=== PATIENT | female | born 1940 | race Caucasian/White ===

== ENCOUNTER 2018-05-01 19:20 | Inpatient (IN) | payer OTHER ==
--- OUTSIDE RECORDS SUMMARY | 2018-05-01 20:01 | XMS REPORT ---
:1940 [facility] Address [address] [place]. [address] [place] [id number] Care Team Providers Name Role Phone Unavailable Unavailable Unavailable Payers Payer Name Policy Type Policy Number Effective Date Expiration Date Problems This patient has no known problems. Allergies, Adverse Reactions, Alerts Allergy Name Allergy Status Severity Reaction(s) Onset Inactive Treating Comments Type Date Date Clinician tioconazole DA Active 2018-04 00:00:0 0 tioconazole DA Active 2018-02 00:00:0 0 tioconazole DA Active 2017-07 00:00:0 0 Medications This patient has no known medications.
[2018-05-01] MEDS ORDERED: IPRATROPIUM BROM 0.5MG/2.5ML ONE (20:14)
[2018-05-01] MEDS ORDERED: ALBUTEROL 2.5 MG/3 ML NEB SOL ONE (20:14)
[2018-05-01 20:21] LABS: Absolute Lymphocytes (CBC) 1.8 K/uL (0.7-4.9); Absolute Monocytes 0.9 K/uL (0.1-1.3); Absolute Neutrophil 7.4 K/uL (1.8-8.0); Basophils % 0.9 % (0-1.3); Eosinophils % 0.7 % (0-4.4); Hematocrit 34.2 % (36.0-45.0); Lymphocytes % 17.5 % (15.3-44.8); MPV 6.8 fL (7.6-11.3); Monocytes % 8.3 % (3.3-12.3); RBC Red Blood Cell Count 3.59 M/uL (3.86-4.86)
[2018-05-01 20:23] LABS: Protime INR 1.13
[2018-05-01 20:42] LABS: ALT/SGPT 17 U/L (12-78); AST/SGOT 16 U/L (15-37); Albumin 2.8 g/dL (3.4-5.0); Alkaline Phosphatase 94 U/L (45-117); BUN Blood Urea Nitrogen 8 mg/dL (7-18); Bicarbonate 27 mmol/L (21-32); Bilirubin Direct < 0.1 mg/dL (0-0.2); Bilirubin Total 0.3 mg/dL (0.2-1.0); Glucose Level 106 mg/dL (74-106); Magnesium 2.3 mg/dL (1.8-2.4); NT PRO-BNP 120 pg/mL (<450); Potassium 3.7 mmol/L (3.5-5.1); Protein, Total 7.5 g/dL (6.4-8.2); Sodium Level 139 mmol/L (136-145); Troponin (Emerg Dept Use Only) < 0.02 ng/mL (0.0-0.045)
[2018-05-01] MEDS ORDERED: METHYLPREDNISOLONE 125 MG INJ ONE (20:54)
--- NOTE | 2018-05-01 21:30 | EDPHYS ---
Physician Documentation [facility] Name: Barbra Ferreira Age: 77 yrs Sex: Female : 1940 Arrival Date: 05/01/2018 Time: 19:23 Bed 2 Private MD: Miguelito Ernandez V ED Physician Steven Perry HPI: 05/02 04:56 This 77 yrs old Female presents to ER via Wheelchair with complaints of tw4 Breathing Difficulty, Chest Pain, Weakness. 04:56 The patient has shortness of breath at rest. Onset: The symptoms/episode began/occurred tw4 today. Duration: The symptoms are continuous, and are unchanged since they started. The patient's shortness of breath has no apparent modifying factors. Associated signs and symptoms: The patient has no apparent associated signs or symptoms. Severity of symptoms: At their worst the symptoms were moderate in the emergency department the symptoms are unchanged. The patient has not experienced similar symptoms in the past. Historical: - Allergies: 05/01 19:43 No Known Allergies; ak1 - Home Meds: 19:43 acetaminophen 325 mg Oral cap [Active]; losartan 25 mg Oral tab [Active]; Robaxin 500 ak1 mg Oral tab [Active]; - PMHx: 19:43 Atrial Fib; Back pain; Hypertension; Asthma; ak1 - PSHx: 19:43 Cholecystectomy; Knee surgery; ak1 - Immunization history:: Adult Immunizations unknown. - Social history:: Smoking status: Patient/guardian denies using tobacco. - Ebola Screening: : No symptoms or risks identified at this time. ROS: 05/02 04:56 Constitutional: Negative for fever, chills, and weight loss, Eyes: Negative for injury, tw4 pain, redness, and discharge, Cardiovascular: Negative for chest pain, palpitations, and edema, Abdomen/GI: Negative for abdominal pain, nausea, vomiting, diarrhea, and constipation, Back: Negative for injury and pain, MS/Extremity: Negative for injury and deformity, Skin: Negative for injury, rash, and discoloration, Neuro: Negative for headache, weakness, numbness, tingling, and seizure. Respiratory: Positive for shortness of breath, wheezing, Negative for cough, dyspnea on exertion, hemoptysis, orthopnea. Exam: 04:56 Constitutional: This is a well developed, well nourished patient who is awake, alert, tw4 and in no acute distress. Eyes: Pupils equal round and reactive to light, extra-ocular motions intact. Lids and lashes normal. Conjunctiva and sclera are non-icteric and not injected. Cornea within normal limits. Periorbital areas with no swelling, redness, or edema. Chest/axilla: Normal chest wall appearance and motion. Nontender with no deformity. No lesions are appreciated. Cardiovascular: Regular rate and rhythm with a normal S1 and S2. No gallops, murmurs, or rubs. Normal PMI, no JVD. No pulse deficits. Abdomen/GI: Soft, non-tender, with normal bowel sounds. No distension or tympany. No guarding or rebound. No evidence of tenderness throughout. Back: No spinal tenderness. No costovertebral tenderness. Full range of motion. MS/ Extremity: Pulses equal, no cyanosis. Neurovascular intact. Full, normal range of motion. Neuro: Awake and alert, GCS 15, oriented to person, place, time, and situation. Cranial nerves II-XII grossly intact. Motor strength 5/5 in all extremities. Sensory grossly intact. Cerebellar exam normal. Normal gait. Vital Signs: 05/01 19:43 BP 154 / 72; Pulse 99; Resp 18; Temp 98.1; Pulse Ox 92% on R/A; Weight 79.38 kg (R); ak1 Height 5 ft. 4 in. (162.56 cm) (R); Pain 5/10; 19:56 BP 169 / 94; Pulse 98; Resp 24; Pulse Ox 94% on R/A; lp1 20:30 BP 140 / 82; Pulse 98; Resp 24; Pulse Ox 94% on R/A; lp1 21:30 BP 122 / 63; Pulse 99; Resp 22; Pulse Ox 91% on R/A; lp1 22:30 BP 133 / 77; Pulse 101; Resp 23; Pulse Ox 91% on R/A; lp1 23:30 BP 147 / 78; Pulse 98; Resp 17; Pulse Ox 92% on R/A; lp1 05/02 00:45 BP 141 / 88; Pulse 99; Resp 20; Pulse Ox 94% on 2 lpm NC; lp1 05/01 19:43 Body Mass Index 30.04 (79.38 kg, 162.56 cm) ak1 MDM: 03/10 19:56 Patient medically screened. tw05/02 04:56 Differential diagnosis: pneumonia, pulmonary edema, Pulmonary Embolism reactive airway tw4 disease. Antibiotic administration: Data reviewed: vital signs, nurses notes. Data interpreted: Pulse oximetry: Interpretation:. Counseling: I had a detailed discussion with the patient and/or guardian regarding: the historical points, exam findings, and any diagnostic results supporting the discharge/admit diagnosis, lab results, radiology results. Medication response: albuterol nebulizer treatment(s) partially relieved the patient's wheezing. Response to treatment: the patient's symptoms have mildly improved after treatment, and as a result, I will discharge patient. Physician consultation: Tonja Pacheco MD regarding admission, to the telemetry unit. patient's condition, and will see patient in inpatient room. Admission orders: after a detailed discussion of the patient's condition and case, the admit orders are written by me. 04:56 Test interpretation: by ED physician or midlevel provider: ECG, plain radiologic 4 studies. 05/01 19:55 Order name: Basic Metabolic Panel [facility] 05/01 19:55 Order name: CBC with Diff [facility] 05/01 19:55 Order name: LFT's [facility] 05/01 19:55 Order name: Magnesium [facility] 05/01 19:55 Order name: NT PRO-BNP [facility] 05/01 19:55 Order name: PT-INR [facility] 05/01 19:55 Order name: Troponin (emerg Dept Use Only) [facility] 05/01 19:55 Order name: XRAY Chest (1 view) [facility] 05/01 21:05 Order name: CT Chest W/ Con [facility] 05/01 23:54 Order name: Urine Dipstick--Ancillary (enter results) 05/01 19:55 Order name: EKG; Complete Time: 19:55 [facility] 05/01 19:55 Order name: Cardiac monitoring; Complete Time: 20:08 [facility] 05/01 19:55 Order name: EKG - Nurse/Tech; Complete Time: 19:56 [facility] 05/01 19:55 Order name: IV Saline Lock; Complete Time: 20:15 [facility] 05/01 19:55 Order name: Labs collected and sent; Complete Time: 20:15 [facility] 05/01 19:55 Order name: O2 Per Protocol; Complete Time: 20:08 tw4 05/01 19:55 Order name: O2 Sat Monitoring; Complete Time: 20:08 tw4 EC:56 Rate is 100 beats/min. Rhythm is regular with PACs. QRS Kemp is Normal. NH interval is tw4 normal. QRS interval is normal. QT interval is normal. No Q waves. T waves are Normal. No ST changes noted. Clinical impression: Abnormal EKG without significant change. Interpreted by me. Reviewed by me. Administered Medications: 05/01 20:09 Drug: Albuterol - atroVENT (3:1) (2.5 mg - 0.5 mg) 3 ml Route: Nebulizer; lp1 20:49 Follow up: Response: Marked relief of symptoms lp1 20:49 Drug: SOLU-Medrol 125 mg Route: IVP; Site: right hand; lp1 21:30 Follow up: Response: No adverse reaction lp1 05/02 00:40 Drug: Rocephin - (cefTRIAXone) 1 grams Route: IVPB; Infused Over: 30 mins; Site: right lp1 hand; 01:21 Follow up: IV Status: Completed infusion; IV Intake: 10ml lp1 00:40 Drug: Tylenol 1000 mg Route: PO; lp1 01:21 Follow up: Response: No adverse reaction lp1 00:40 Drug: Zithromax 500 mg Route: IVPB; Infused Over: 1 hrs; Site: right hand; lp1 01:22 Follow up: IV Status: Infusion continued upon admission lp1 Disposition: 05/01/18 21:29 Hospitalization ordered by Miguelito Ernandez for Inpatient Admission. Preliminary diagnosis are Pleural effusion in other conditions classified elsewhere, Dyspnea, unspecified. - Bed requested for Telemetry/MedSurg (Inpatient). - Status is Inpatient Admission. lp1 - Condition is Fair. - Problem is new. - Symptoms are unchanged. UTI on Admission? No Signatures: Dispatcher [employer] Cele Lowry RN RN dw Candis Baeza RN RN lp1 Berenice Smith RN RN ak1 Steven Perry MD MD tw4 Corrections: (The following items were deleted from the chart) 00:51 05/01 21:29 Hospitalization Ordered by Miguelito Ernandez MD for Inpatient Admission. dw Preliminary diagnosis is Pleural effusion in other conditions classified elsewhere; Dyspnea, unspecified. Bed requested for Telemetry/MedSurg (Inpatient). Status is Inpatient Admission. Condition is Fair. Problem is new. Symptoms are unchanged. UTI on Admission? No. tw4 05/02 01:22 00:51 05/01/2018 21:29 Hospitalization Ordered by Miguelito Ernandez MD for Inpatient lp1 Admission. Preliminary diagnosis is Pleural effusion in other conditions classified elsewhere; Dyspnea, unspecified. Bed requested for Telemetry/MedSurg (Inpatient). Status is Inpatient Admission. Condition is Fair. Problem is new. Symptoms are unchanged. UTI on Admission? No. dw
--- NOTE | 2018-05-01 21:30 | ER ---
Nurse's Notes [facility] Name: Barbra Ferreira Age: 77 yrs Sex: Female : 1940 Arrival Date: 05/01/2018 Time: 19:23 Bed 2 Private MD: Miguelito Ernandez V Diagnosis: Pleural effusion in other conditions classified elsewhere;Dyspnea, unspecified Presentation: 05/01 19:41 Presenting complaint: Patient states: SOB AND CHEST TIGHTNESS TODAY. PT USED RECUSE ak1 INHALER TODAY. PT TAKING OTC COUGH MEDS AND SUDAFED. Transition of care: patient was not received from another setting of care. Onset of symptoms was May 01, 2018. Note PT C/O COUGH X2 WEEKS. Care prior to arrival: None. 19:41 Method Of Arrival: Wheelchair ak1 19:41 Acuity: ISABELLE 3 ak1 20:53 Risk Assessment: Do you want to hurt yourself or someone else? Patient reports no lp1 desire to harm self or others. Initial Sepsis Screen: Does the patient meet any 2 criteria? No. Patient's initial sepsis screen is negative. Does the patient have a suspected source of infection? No. Patient's initial sepsis screen is negative. Triage Assessment: 19:43 General: Appears in no apparent distress. Behavior is cooperative, anxious. ak1 Historical: - Allergies: 19:43 No Known Allergies; ak1 - Home Meds: 19:43 acetaminophen 325 mg Oral cap [Active]; losartan 25 mg Oral tab [Active]; Robaxin 500 ak1 mg Oral tab [Active]; - PMHx: 19:43 Atrial Fib; Back pain; Hypertension; Asthma; ak1 - PSHx: 19:43 Cholecystectomy; Knee surgery; ak1 - Immunization history:: Adult Immunizations unknown. - Social history:: Smoking status: Patient/guardian denies using tobacco. - Ebola Screening: : No symptoms or risks identified at this time. Screenin:53 Abuse screen: Denies threats or abuse. Denies injuries from another. Nutritional lp1 screening: No deficits noted. Tuberculosis screening: No symptoms or risk factors identified. Fall Risk None identified. Assessment: 19:57 General: Appears uncomfortable, Behavior is anxious. Pain: Denies pain. Neuro: Level of lp1 Consciousness is awake, alert, obeys commands, Oriented to person, place, time, situation. Cardiovascular: Patient's skin is warm and dry. Rhythm is sinus rhythm. Respiratory: Reports shortness of breath at rest cough that is productive, Airway is patent Trachea midline Respiratory effort is even, Respiratory pattern is regular, Breath sounds are diminished bilaterally. Onset: The symptoms/episode began/occurred gradually, the patient has mild shortness of breath. GI: No signs and/or symptoms were reported involving the gastrointestinal system. : No signs and/or symptoms were reported regarding the genitourinary system. EENT: Reports nasal congestion. Derm: Skin is intact, Skin is dry, Skin is normal. Musculoskeletal: Circulation, motion, and sensation intact. 20:52 Reassessment: Patient appears in no apparent distress at this time. Reassessment: lp1 Patient states feeling better. Patient states symptoms have improved. General: Behavior is calm. 22:00 Reassessment: Patient appears in no apparent distress at this time. No changes from lp1 previously documented assessment. Patient is alert, oriented x 3, equal unlabored respirations, skin warm/dry/pink. 23:37 Reassessment: Patient appears in no apparent distress at this time. No changes from aj1 previously documented assessment. Patient and/or family updated on plan of care and expected duration. Pain level reassessed. pt informed of wait for bed assignment. pt assisted to restroom via wheelchair by Ciro Horn Patient states feeling better. Patient states symptoms have improved. 05/02 00:30 Reassessment: Patient complaint of headache; Provider aware. lp1 Vital Signs: 05/01 19:43 BP 154 / 72; Pulse 99; Resp 18; Temp 98.1; Pulse Ox 92% on R/A; Weight 79.38 kg (R); ak1 Height 5 ft. 4 in. (162.56 cm) (R); Pain 5/10; 19:56 BP 169 / 94; Pulse 98; Resp 24; Pulse Ox 94% on R/A; lp1 20:30 BP 140 / 82; Pulse 98; Resp 24; Pulse Ox 94% on R/A; lp1 21:30 BP 122 / 63; Pulse 99; Resp 22; Pulse Ox 91% on R/A; lp1 22:30 BP 133 / 77; Pulse 101; Resp 23; Pulse Ox 91% on R/A; lp1 23:30 BP 147 / 78; Pulse 98; Resp 17; Pulse Ox 92% on R/A; lp1 05/02 00:45 BP 141 / 88; Pulse 99; Resp 20; Pulse Ox 94% on 2 lpm NC; lp1 05/01 19:43 Body Mass Index 30.04 (79.38 kg, 162.56 cm) ak1 ED Course: 05/01 19:23 Patient arrived in ED. es 19:23 Miguelito Ernandez MD is Private Physician. es 19:42 Triage completed. ak1 19:43 Arm band placed on Patient placed in an exam room, Patient notified of wait time. ak1 19:45 Candis Baeza, RYANNE is Primary Nurse. lp1 19:55 Steven Perry MD is Attending Physician. tw4 19:58 Patient has correct armband on for positive identification. Placed in gown. Bed in low lp1 position. Call light in reach. Side rails up X2. nuclear monitoring technician on. Pulse ox on. NIBP on. 20:13 Inserted saline lock: 22 gauge in right hand, using aseptic technique. Blood collected. oe 20:54 No provider procedures requiring assistance completed. lp1 21:08 XRAY Chest (1 view) In Process Unspecified. EDMS 21:28 Miguelito Ernandez MD is Hospitalizing Provider. tw4 21:33 Patient admitted, IV remains in place. lp1 22:34 Inserted saline lock: 20 gauge in right antecubital area, using aseptic technique. ak1 23:17 CT Chest W/ Con In Process Unspecified. EDMS Administered Medications: 20:09 Drug: Albuterol - atroVENT (3:1) (2.5 mg - 0.5 mg) 3 ml Route: Nebulizer; lp1 20:49 Follow up: Response: Marked relief of symptoms lp1 20:49 Drug: SOLU-Medrol 125 mg Route: IVP; Site: right hand; lp1 21:30 Follow up: Response: No adverse reaction lp1 05/02 00:40 Drug: Rocephin - (cefTRIAXone) 1 grams Route: IVPB; Infused Over: 30 mins; Site: right lp1 hand; 01:21 Follow up: IV Status: Completed infusion; IV Intake: 10ml lp1 00:40 Drug: Tylenol 1000 mg Route: PO; lp1 01:21 Follow up: Response: No adverse reaction lp1 00:40 Drug: Zithromax 500 mg Route: IVPB; Infused Over: 1 hrs; Site: right hand; lp1 01:22 Follow up: IV Status: Infusion continued upon admission lp1 Intake: 01:21 IV: 10ml; Total: 10ml. lp1 Outcome: 05/01 21:29 Decision to Hospitalize by Provider. tw4 21:33 Condition: stable lp1 21:33 Instructed on the need for admit. 05/02 01:08 Admitted to Med/surg accompanied by nurse, room 209, with oxygen, with chart, Report lp1 called to Lula El LVN 01:22 Patient left the ED. lp1 Signatures: Dispatcher [employer] EDSherrie Castillo RN RN aj1 Nga Pelayo Laura, RN RN lp1 Berenice Smith RN RN ak1 Ciro Quiros Terrence, MD MD tw4 Corrections: (The following items were deleted from the chart) 05/01 20:53 19:57 Respiratory: Reports shortness of breath at rest cough that is productive, Airway lp1 is patent Trachea midline Respiratory effort is even, Respiratory pattern is regular, Breath sounds are diminished bilaterally. lp1
--- NOTE | 2018-05-01 21:38 | RAD REPORT ---
EXAM DESCRIPTION: RAD - Chest Single View - 05/01/2018 9:08 pm CLINICAL HISTORY: DYSPNEA Chest pain. COMPARISON: Chest Pa And Lat (2 Views) dated 11/09/2017; Chest Single View dated 09/15/2016; CHEST SIN GLE VIEW dated 08/28/2013; CHEST PA AND LAT 2 VIEW dated 04/22/2007 FINDINGS: Portable technique limits examination quality. Moderate left and a small right pleural effusion is noted. Mild interstitial pulmonary edema seen. He art size is difficult to assess. No displaced fractures.
[2018-05-01 23:58] LABS: Urine Blood TRACE (NEG); Urine Glucose NEGATIVE (NEG); Urine Protein NEGATIVE (NEG); Urine Specific Gravity 1.005 (1.005-1.030)
[2018-05-02] MEDS ORDERED: ACETAMINOPHEN 500 MG TAB ONE (00:46)
[2018-05-02] MEDS ORDERED: AZITHROMYCIN 500 MG INJ IVPB ONE (00:46)
[2018-05-02] MEDS ORDERED: NA CHLORIDE 0.9% 250 ML ONE (00:47)
[2018-05-02] MEDS: ACETAMINOPHEN 500 MG TAB PO PRN ×2 (06:21→15:36)
--- NOTE | 2018-05-02 08:35 | EKG ---
Test Date: 2018-05-01 Test Time: 18:52:16 Heart Coordinator: MARILU MEASUREMENT RESULTS: Intervals: Rate: 100 MI: 196 QRSD: 84 QT: 328 QTc: 423 [place]: P: 37 MI: 196 QRS: 6 T: 14 INTERPRETIVE STATEMENTS: Sinus rhythm with premature atrial complexes Low voltage QRS Borderline ECG Compared to ECG 09/15/2016 01:57:30 Atrial premature complex(es) now present First degree AV block no longer present ST (T wave) deviation no longer present Possible ischemia no longer present Electronically Signed On 05-02-18 08:34:37 CDT by Chidi Mansfield
[2018-05-02 08:57] LABS: Protime INR 1.17
[2018-05-02] MEDS ORDERED: CEFTRIAXONE 1 GM/NS 50 ML 1 GM/50 ML BAG IV SCH (09:00)
[2018-05-02] MEDS ORDERED: AZITHROMYCIN IV 500 MG in NA CHLORIDE 0.9% 250 ML IVPB SCH ×2 (09:00→21:00)
[2018-05-02] MEDS ORDERED: CEFTRIAXONE/SWI 1gm 1 GM/10 ML SYR IV SCH (09:00)
[2018-05-02 09:12] LABS: Platelet Estimate INCR
--- NOTE | 2018-05-02 12:13 | RAD REPORT ---
EXAM DESCRIPTION: CT Chest With Intravenous Contrast CLINICAL HISTORY: The patient is 77 years old and is Female; SOB TECHNIQUE: Axial computed tomography images of the chest with intravenous contrast. Sagittal and c oronal reformatted images were created and reviewed. This CT exam was performed using one or more o f the following dose reduction techniques: automated exposure control, adjustment of the mA and/or kV according to patient size, and/or use of iterative reconstruction technique. COMPARISON: CTA chest dated November 09, 2017. FINDINGS: LUNGS: See below. PLEURAL SPACE: Moderate right and large left pleural effusions and adjacent atelectasis. There is a opacity with air bronchograms in the right lower lobe. Similar-appearing finding is seen in the sup erior segment of the left lower lobe. HEART: The heart is normal in size. No pericardial effusion. BONES/JOINTS: Unremarkable. No acute fracture. No dislocation. SOFT TISSUES: Unremarkable. VASCULATURE: Unremarkable. No thoracic aortic aneurysm. LYMPH NODES: Unremarkable. No enlarged lymph nodes. LIVER: Visualized upper abdomen demonstrate no acute abnormality. Multiple subcentimeter hepatic h ypodensities are noted, likely cysts. OTHER FINDINGS: Diffuse disc space narrowing and reactive endplate changes. IMPRESSION: 1. Large bilateral pleural effusions, left greater than right. Adjacent atelectasis. 2. Small opacities and air bronchograms as detailed above which may be related to atelectasis or cons olidation. Correlate for symptoms of infection. 3. Degenerative disc disease. Electronically signed by: Yeison Byrd DO 05/01/2018 11:25 PM CDT Due to temporary technical issues with the PACS/Fluency reporting system, reports are being signed by the in house radiologist as a courtesy to ensure prompt reporting. The interpreting radiologist is f ully responsible for the content of the report.
[2018-05-02] MEDS ORDERED: FUROSEMIDE 20 MG/ 2ML VIAL IV ONE (12:30)
--- NOTE | 2018-05-02 13:08 | P.HP ---
Certification for Inpatient Patient admitted to: Inpatient With expected LOS: >2 Midnights Practitioner: I am a practitioner with admitting privileges, knowledge of patient current condition, hospital course, and medical plan of care. Services: Services provided to patient in accordance with Admission requirements found in Title 42 Section 412.3 of the Code of Federal Regulations Patient History Date of Service: 05/02/18 Reason for admission: DYSPNEA History of Present Illness: SAMARA HAS DYSPNEA WORSE OVER A FEW DAYS. SHE IS WORSE AND SO SHE CAME TO ER. SHE HAS NO CHEST PAIN. SHE HAS NO FEVER OR COUGH. Allergies tioconazole [From Monistat 1 (tioconazole)] Allergy (Verified 05/02/18 02:22) Hives/Rash Home Medications: Albuterol Sulfate [Proair Hfa] 2 inhaler PO QID 05/02/18 Glycopyrrolate/Formoterol Fum [Bevespi Aerosphere Inhaler] 1 inhaler PO QID 01/10 Losartan Potassium 100 mg PO DAILY 05/02/18 Meloxicam 7.5 mg PO DAILY 05/02/18 Methocarbamol 750 mg PO TID 05/02/18 - Past Medical/Surgical History Has patient received pneumonia vaccine in the past: Yes Diabetic: No -: A.FIB -: HTN -: BACK PAIN -: OVARIAN CYST REMOVAL -: KNEE SX -: CHOLECYSTECTOMY - Social History Smoking Status: Never smoker Alcohol use: No CD- Drugs: No Caffeine use: Yes Place of Residence: Home Review of Systems 10-point ROS is otherwise unremarkable General: Weakness, Malaise Respiratory: Shortness of Breath Physical Examination - Vital Signs Temperature: 99.0 F Blood Pressure: 175/85 Pulse: 79 Respirations: 22 Pulse Ox (%): 93 - Physical Exam General: Alert, Mild distress, Obese HEENT: Atraumatic, PERRLA, Mucous membr. moist/pink, EOMI, Sclerae nonicteric Neck: Supple, 2+ carotid pulse no bruit, No LAD, Without JVD or thyroid abnormality Respiratory: Diminished Cardiovascular: Regular rate/rhythm, Normal S1 S2 Gastrointestinal: Normal bowel sounds, No tenderness Musculoskeletal: No tenderness Integumentary: No rashes Neurological: Normal gait, Normal speech, Normal strength at 5/5 x4 extr, Normal tone, Normal affect Lymphatics: No axilla or inguinal lymphadenopathy - Studies Laboratory Data (last 24 hrs) 05/01/18 20:11: PT 13.3 H, INR 1.13 05/01/18 20:11: WBC 10.2, Hgb 11.8 L, Hct 34.2 L, Plt Count 696 H 05/01/18 20:11: Sodium 139, Potassium 3.7, BUN 8, Creatinine 0.45 L, Glucose 106 , Magnesium 2.3, Total Bilirubin 0.3, AST 16, ALT 17, Alkaline Phosphatase 94 Assessment and Plan - Problems (Diagnosis) (1) Large pleural effusion Current Visit: Yes Status: Chronic Plan: SHE HAS NO TUMOR ON CT SCAN. NO SIGNS OF CHF CLINICALLY, NORMAL BNP. ORDER ECHO ORDER SONOGRAM OF ABDOMEN. LOW ALBUMIN CAN BE FROM NEPHROTIC SYNDROME OR CIRRHOSIS FROM FATTY LIVER. DR. JOHANSEN CONSULTED FOR TAP. - Advance Directives Does patient have a Living Will: Yes Does patient have a Durable POA for Healthcare: Yes
--- NOTE | 2018-05-02 14:20 | RAD REPORT ---
EXAM DESCRIPTION: US - Abdomen Exam Complete - 05/02/2018 2:04 pm CLINICAL HISTORY: Abdominal pain. LIVER, LOW ALBUMIN COMPARISON: Abdomen Exam Complete dated 12/22/2017 FINDINGS: The liver is normal in size, shape and echotexture. No focal liver lesions or intrahepatic biliary dilatation is seen. Small benign left lobe liver cysts are unchanged. Cholecystectomy. Common bile duct is mildly prominent size measuring 8 mm. Both kidneys are normal in size, shape and echotexture. No hydronephrosis seen. No aggressive renal l esion. The spleen is normal in size measuring 8 cm. The pancreas and aorta are obscured by bowel gas. The visualized aspects of the IVC are grossly normal. IMPRESSION: Cholecystectomy with mildly prominent CBD. Most likely, this is secondary to a reservoir effect. No acute abnormality discerned.
--- NOTE | 2018-05-02 14:49 | RAD REPORT ---
EXAM DESCRIPTION: RAD - Chest Lateral Decubitus - 05/02/2018 2:36 pm CLINICAL HISTORY: SOB COMPARISON: Chest Single View dated 05/01/2018 FINDINGS: Left side up decubitus view shows a layering pleural effusion on the right measuring 3.5 c m in maximum thickness. The right-side up decubitus view shows a layering pleural effusion on the lef t measuring 4.8 cm in maximum thickness.
[2018-05-03] MEDS: ACETAMINOPHEN 500 MG TAB PO PRN ×2 (04:36→19:46)
[2018-05-03] MEDS: SPIRONOLACTONE 25 MG TABLET PO SCH ×2 (09:36→19:46)
[2018-05-03] MEDS: FUROSEMIDE 20 MG/ 2ML VIAL IV SCH (09:36)
--- NOTE | 2018-05-03 12:27 | P.CNS ---
Date of Consult: 05/03/18 Chief Complaint: Shortness of breath and pleural effusion History of Present Illness: Patient is 77 years of age has been complaining of progressive dyspnea worse over the past week she has noticed in March and prior to that in November the history of asthma for 10 years and was treated with intermittent inhalers and was prescribed inhalers became worse coughing spells no oral came here to the hospital and was admitted due to bilateral pleural effusions also has some lower extremity edema complains of orthopnea Allergies tioconazole [From Monistat 1 (tioconazole)] Allergy (Verified 05/02/18 02:22) Hives/Rash Home Medications: Albuterol Sulfate [Proair Hfa] 2 inhaler PO QID 05/02/18 Glycopyrrolate/Formoterol Fum [Bevespi Aerosphere Inhaler] 1 inhaler PO QID 01/10 Losartan Potassium 100 mg PO DAILY 05/02/18 Meloxicam 7.5 mg PO DAILY 05/02/18 Methocarbamol 750 mg PO TID 05/02/18 - Past Medical/Surgical History Diabetic: No -: A.FIB -: HTN -: BACK PAIN -: OVARIAN CYST REMOVAL -: KNEE SX -: CHOLECYSTECTOMY - Social History Alcohol use: No CD- Drugs: No Caffeine use: Yes Place of Residence: Home Review of Systems 10-point ROS is otherwise unremarkable Physical Examination Temp Pulse Resp BP Pulse Ox 97.1 F 65 18 103/58 L 100 05/03/18 08:00 05/03/18 09:36 05/03/18 08:00 05/03/18 09:36 05/03/18 08:00 General: Alert, Oriented x3 HEENT: Atraumatic Neck: Supple Respiratory: Diminished (Diminished air entry bilaterally left greater than the right) Cardiovascular: No edema, Regular rate/rhythm Gastrointestinal: Normal bowel sounds, Soft and benign - Problems (1) Pleural effusion Current Visit: Yes Status: Acute Plan: Patient is 77 years of age admitted with progressive dyspnea worsens March as been having a problem since November became worse over the past week bilateral pleural effusion left greater than light lower extremity edema orthopnea this strongly suspect that she is diastolic dysfunction decubitus x- rays again confirms bilateral pleural effusions the start patient on spironolactone 1 dose of Lasix chemistries reviewed blood pressure stable oxygenation satisfactory echocardiogram pending thoracenteses not indicated this present moment
--- NOTE | 2018-05-03 13:24 | P.PN ---
Subjective Date of Service: 05/03/18 Chief Complaint: Shortness of breath and pleural effusion Subjective: No new changes WE ARE STILL WAITING FOR ECHOCARDIOGRAM. SHE IS STILL DYSPNEIC AT REST. DR JOHANSEN HAS BEEN CONSULTED. Review of Systems 10-point ROS is otherwise unremarkable General: Weakness, Malaise Respiratory: Shortness of Breath Physical Examination - Vital Signs Temperature: 97.1 F Blood Pressure: 103/58 Pulse: 65 Respirations: 18 Pulse Ox (%): 100 - Physical Exam General: Alert, Mild distress, Moderate distress HEENT: Atraumatic, PERRLA, EOMI Neck: Supple, JVD not distended Respiratory: Clear to auscultation bilaterally, Normal air movement Cardiovascular: Regular rate/rhythm, Normal S1 S2 Gastrointestinal: Normal bowel sounds, No tenderness Musculoskeletal: No tenderness Integumentary: No rashes Neurological: Normal speech, Normal tone, Normal affect Lymphatics: No axilla or inguinal lymphadenopathy - Studies Medications List Reviewed: Yes Assessment And Plan - Current Problems (Diagnosis) (1) Large pleural effusion Current Visit: Yes Status: Chronic Plan: SHE HAS NO TUMOR ON CT SCAN. NO SIGNS OF CHF CLINICALLY, NORMAL BNP. ORDER ECHO ORDER SONOGRAM OF ABDOMEN. LOW ALBUMIN CAN BE FROM NEPHROTIC SYNDROME OR CIRRHOSIS FROM FATTY LIVER. DR. JOHANSEN CONSULTED FOR TAP. ECHO PENDING. MAY NEED TO TAP IT.
--- NOTE | 2018-05-03 17:30 | ECHO ---
HEIGHT: 5 ft 4 in WEIGHT: 176 lb 9 oz DATE OF STUDY: 05/03/[address]: Miguelito Ernandez MD 2-DIMENSIONAL: YES M.MODE: YES DOPPLER: YES COLOR FLOW: YES TDS: YES PORTABLE: DEFINITY: BUBBLE STUDY: DIAGNOSIS: DYSPNEA CARDIAC HISTORY: CATHERIZATION: SURGERY: PROSTHETIC VALVE: NO PACEMAKER: NO MEASUREMENTS (cm) DIASTOLIC (NORMALS) SYSTOLIC (NORMALS) IVSd 1.1 (0.6-1.2) LA Diam 4.0 (1.9-4.0) LVEF 65% LVIDd 4.1 (3.5-5.7) LVIDs 2.7 (2.0-3.5) %FS 35% LVPWd 1.0 (0.6-1.2) Ao Diam 2.5 (2.0-3.7) 2 DIMENSIONAL ASSESSMENT: RIGHT ATRIUM: NORMAL LEFT ATRIUM: NORMAL RIGHT VENTRICLE: NORMAL LEFT VENTRICLE: NORMAL TRICUSPID VALVE: NORMAL MITRAL VALVE: NORMAL PULMONIC VALVE: NORMAL AORTIC VALVE: NORMAL PERICARDIAL EFFUSION: NONE AORTIC ROOT: NORMAL LEFT VENTRICULAR WALL MOTION: NORMAL DOPPLER/COLOR FLOW: IMPAIRED LEFT VENTRICULAR RELAXATION. MILD AORTIC REGURGITATION. COMMENTS: NORMAL LEFT VENTRICULAR EJECTION FRACTION. IMPAIRED LEFT VENTRICULAR RELAXATION. MILD AORTIC REGURGITATION. TECHNICALLY DIFFICULT STUDY. TECHNOLOGIST: CARLOS DANIEL
[2018-05-03] MEDS: SOTALOL HCL 80 MG TAB PO SCH (23:54)
[2018-05-03] MEDS: LIDOCAINE 5% PATCH TOP SCH (23:54)
[2018-05-04] MEDS: ACETAMINOPHEN 500 MG TAB PO PRN ×2 (00:10→06:34)
[2018-05-04] MEDS ORDERED: METHOCARBAMOL 750 MG TAB PO ONE (00:20)
[2018-05-04] MEDS: APIXABAN 5 MG TABLET PO SCH ×4 (00:37→20:21)
[2018-05-04] MEDS: SOTALOL HCL 80 MG TAB PO SCH ×2 (06:35→17:19)
[2018-05-04] MEDS: SPIRONOLACTONE 25 MG TABLET PO SCH ×2 (08:23→20:21)
[2018-05-04] MEDS: LIDOCAINE 5% PATCH TOP SCH ×2 (08:27→11:42)
[2018-05-04] MEDS: FUROSEMIDE 20 MG/ 2ML VIAL IV SCH (09:00)
[2018-05-04] MEDS ORDERED: METHOCARBAMOL 500 MG TAB PO PRN (11:33)
--- NOTE | 2018-05-04 12:33 | P.PN ---
Subjective Date of Service: 05/04/18 Chief Complaint: Shortness of breath No change in patient's condition she is still short of breath kelley patient developed atrial fibrillation last night she has had history of intermittent atrial fibrillation very anxious daughter at her bedside has problems taking Lasix Review of Systems General: Weakness Respiratory: Shortness of Breath Physical Examination - Vital Signs Temperature: 97.2 F Blood Pressure: 110/67 Pulse: 101 Respirations: 18 Pulse Ox (%): 93 - Physical Exam General: Alert, Oriented x3 Neck: Supple Respiratory: Diminished Cardiovascular: No edema, Regular rate/rhythm - Studies Medications List Reviewed: Yes Assessment & Plan - Problems (Diagnosis) (1) Diastolic heart failure Current Visit: Yes Status: Acute Plan: I strongly suspect the patient has diastolic heart failure as patient has bilateral pleural effusion in addition to hypertension atrial fibrillation continue with spironolactone patient is on Betapace and has now anti coagulated for centesis not indicated at this present time echocardiogram shows impaired left ventricular relaxation room-air oxygenation satisfactory she is not qualify for home O2 ovoid bronchodilators Qualifiers: Heart failure chronicity: acute on chronic Qualified Code(s): I50.33 - Acute on chronic diastolic (congestive) heart failure
[2018-05-04] MEDS: LEVALBUTEROL 0.63 MG/3 ML NEB NEB PRN (13:03)
--- NOTE | 2018-05-04 14:09 | CON ---
A 77-year-old woman. Reason For Consult: Afib. History Of Present Illness: The patient has been in the hospital because of dyspnea. She is found t o have diastolic heart failure. She was in sinus rhythm when she first came in. She is undergoing s ome diuresis, but is unable to tolerate Lasix, so diuresis is being done with other medications and s he is getting slowly better, but while here she had atrial fibrillation. Presently her heart rate is much slower, but she is still in Afib. She has a history of hypertension and dyslipidemia. She has not had atrial fibrillation in the past at least that has been recorded and we know that. She had b ack pain, ovarian cyst, cholecystectomy, knee surgery, never been a smoker. As an outpatient she marlo es albuterol, Bevespi Aerosphere inhaler, losartan, meloxicam, and methocarbamol. Physical Examination: General: She is alert, oriented, pleasant. Vital Signs: 5 feet 4 inches, 176 pounds. HEENT: Normal. Lungs: Clear. There are decreased breath sounds, especially on the right side, but no crackles or w heeze. Cardiac: Irregular, heart rate about 90. Impression: We should try to get her back in sinus rhythm. She will be receiving Betapace 80 b.i.d. and Eliquis until we can get her rhythm to go back to normal. If it does not go back by Wednesday, we will consider a cardioversion. ASIF/ROQUE Voice ID: [id number] Report ID: [id number]
[2018-05-04] MEDS: METHOCARBAMOL 750 MG TAB PO SCH ×2 (14:36→20:20)
[2018-05-04] MEDS: GABAPENTIN 100 MG CAP PO SCH ×2 (14:37→20:21)
[2018-05-04] MEDS ORDERED: [UNRECOGNIZED DRUG - OTHER] PO SCH (17:00)
[2018-05-04] MEDS ORDERED: GLYCOPYRROLATE PO SCH (17:00)
[2018-05-04] MEDS ORDERED: FORMOTEROL FUM PO SCH (17:00)
[2018-05-04] MEDS: METHYLPREDNISOLONE 40 MG INJ IV SCH (17:19)
--- NOTE | 2018-05-04 20:48 | P.PN ---
Subjective Date of Service: 05/04/18 Chief Complaint: Shortness of breath Subjective: C/O voiced WE ARE STILL WAITING FOR ECHOCARDIOGRAM. SHE IS STILL DYSPNEIC AT REST. DR JOHANSEN HAS BEEN CONSULTED. THIS AM SHE HAD NECK PAIN, MID BACK PAIN. ROBAXIN HELPED AND SHE WILL GET MORE PRN. SHE IS SITTING SHE CAN'T BREATH AND SO SHE HAS NECK PAIN. SHE LAST NIGHT HAD CONVERSION TO ATRIAL FIBRILLATION. I GAVER HER BETAPACE, ELIQUIS AND CONSULTED DR. WATERMAN. HER HEART RATE IS DOWN FROM 150 TO 100 NOW. THIS PM NURSE CALLED THAT SHE IS MORE DYSPNEIC DESPITE DIURESIS AND NEBULIZER WITH IV SOLUMEDROL. I ADIVSED NURSE TO MOVE HER TO ICU FOR FURTHER THERAPY, ORDERED CBC, BASIC M. PROFILE AND BNP, CXR, STAT. I ALSO CALLED DR. JOHANSEN ABOUT CHANGE OF CONDITION AND FOLLOW UP. HE THOUGHT SHE WAS VERY ANXIOUS IN THE MORNING. Review of Systems 10-point ROS is otherwise unremarkable Respiratory: Shortness of Breath, As per HPI Physical Examination - Vital Signs Temperature: 98.5 F Blood Pressure: 191/92 Pulse: 76 Respirations: 18 Pulse Ox (%): 96 - Physical Exam General: Alert, Mild distress HEENT: Atraumatic, PERRLA, EOMI Neck: Supple, JVD not distended Respiratory: Diminished Cardiovascular: Regular rate/rhythm, Normal S1 S2 Gastrointestinal: Normal bowel sounds, No tenderness Musculoskeletal: No tenderness Integumentary: No rashes Neurological: Normal speech, Normal tone, Normal affect Lymphatics: No axilla or inguinal lymphadenopathy - Studies Medications List Reviewed: Yes Assessment And Plan - Current Problems (Diagnosis) (1) Large pleural effusion Current Visit: Yes Status: Chronic Plan: SHE HAS NO TUMOR ON CT SCAN. NO SIGNS OF CHF CLINICALLY, NORMAL BNP. ORDER ECHO ORDER SONOGRAM OF ABDOMEN. LOW ALBUMIN CAN BE FROM NEPHROTIC SYNDROME OR CIRRHOSIS FROM FATTY LIVER. DR. JOHANSEN CONSULTED FOR TAP. ECHO PENDING. MAY NEED TO TAP IT. DR JOHANSEN IS TREATING THIS WITH DIURESIS IT SEEMS TO HAVE DIAGNOSIS OF DIASTOLIC DYSFUNCTION. PROTEIN IN URINE IS NOT SIGNIFICANT- FOR NEPH SYNDROME. (2) Diastolic CHF Current Visit: Yes Status: Acute Plan: IV DIURESIS. SHE SAYS LASIX GIVES HER IBS SS SO I CHANGED TO BUMEX IV BID. SHE IS ALREADY ON B TRACE FROM LAST NIGHT. DR. WATERMAN IS CONSULTED. Qualifiers: Heart failure chronicity: acute Qualified Code(s): I50.31 - Acute diastolic (congestive) heart failure (3) New onset a-fib Current Visit: Yes Status: Acute Plan: HPI. (4) Neck pain Current Visit: Yes Status: Chronic Plan: GABAPENTIN AND ROBAXIN
[2018-05-04 21:26] LABS: Absolute Lymphocytes (CBC) 0.9 K/uL (0.7-4.9); Absolute Monocytes 0.1 K/uL (0.1-1.3); Absolute Neutrophil 9.6 K/uL (1.8-8.0); Basophils % 0.5 % (0-1.3); Eosinophils % 0.1 % (0-4.4); Hematocrit 38.6 % (36.0-45.0); Lymphocytes % 8.1 % (15.3-44.8); MPV 6.9 fL (7.6-11.3); Monocytes % 1.2 % (3.3-12.3); RBC Red Blood Cell Count 4.09 M/uL (3.86-4.86)
[2018-05-04 21:42] LABS: BUN Blood Urea Nitrogen 8 mg/dL (7-18); Bicarbonate 28 mmol/L (21-32); Glucose Level 134 mg/dL (74-106); NT PRO-BNP 1094 pg/mL (<450); Potassium 4.2 mmol/L (3.5-5.1); Sodium Level 131 mmol/L (136-145)
[2018-05-04] MEDS: BUMETANIDE 1 MG/4 ML VIAL IV SCH (21:58)
[2018-05-04 22:22] LABS: Arterial Blood Carboxyhemoglob 1.2 % (0-1.5); Blood Gas Oxyhemoglobin 91.5 % (94-97); Blood O2 Saturation 93.2 % (92-98.5)
[2018-05-04 22:41] LABS: Blood Morphology Comment NOT SEEN (NOT SEEN); Platelet Estimate ADEQ; Urine White Blood Cell Casts OK
[2018-05-05] MEDS: ACETAMINOPHEN 500 MG TAB PO PRN (00:13)
[2018-05-05] MEDS: METHYLPREDNISOLONE 40 MG INJ IV SCH ×2 (00:13→06:40)
[2018-05-05] MEDS: ALPRAZOLAM 0.25 MG TABLET PO PRN ×2 (00:14→20:54)
[2018-05-05] MEDS: SOTALOL HCL 80 MG TAB PO SCH ×2 (06:40→17:43)
[2018-05-05] MEDS: LEVALBUTEROL 0.63 MG/3 ML NEB NEB PRN (08:16)
--- NOTE | 2018-05-05 08:22 | P.PN ---
Subjective Date of Service: 05/05/18 Chief Complaint: Shortness of breath Patient's condition deteriorated last night she became acutely worse was transferred to the ICU after the insertion of Jorge catheter and hangs a lytic patient is doing much better denies any fever chills did not tolerate BiPAP Review of Systems General: Weakness Respiratory: Shortness of Breath Physical Examination - Vital Signs Temperature: 98.1 F Blood Pressure: 133/72 Pulse: 67 Respirations: 18 Pulse Ox (%): 91 - Physical Exam General: Alert, Oriented x3 HEENT: Atraumatic Neck: Supple Respiratory: Diminished (Diminished air entry bilaterally) Cardiovascular: No edema, Normal pulses, Regular rate/rhythm - Studies Medications List Reviewed: Yes Assessment & Plan - Problems (Diagnosis) (1) Diastolic heart failure Current Visit: Yes Status: Acute Plan: Patient has bilateral pleural effusions diastolic heart failure continue with Bumex as citrus stopping steroids will repeated on the chest x-ray consider thoracentesis on the left side for symptom relief patient is currently anti coagulated the patient continues to responded probably poor and to wait until over the weekend vital signs in oxygenation satisfactory Qualifiers: Heart failure chronicity: acute on chronic Qualified Code(s): I50.33 - Acute on chronic diastolic (congestive) heart failure
[2018-05-05] MEDS: LIDOCAINE 5% PATCH TOP SCH ×2 (08:52→09:00)
[2018-05-05] MEDS: LOSARTAN POTASSIUM 50 MG TABLET PO SCH (08:52)
[2018-05-05] MEDS: SPIRONOLACTONE 25 MG TABLET PO SCH ×2 (08:52→20:56)
[2018-05-05] MEDS: APIXABAN 5 MG TABLET PO SCH ×2 (08:52→20:55)
[2018-05-05] MEDS: GABAPENTIN 100 MG CAP PO SCH ×3 (08:52→20:55)
[2018-05-05] MEDS: METHOCARBAMOL 750 MG TAB PO SCH ×3 (09:42→20:55)
[2018-05-05] MEDS: BUMETANIDE 1 MG/4 ML VIAL IV SCH ×2 (09:42→20:54)
--- NOTE | 2018-05-05 09:48 | RAD REPORT ---
EXAM DESCRIPTION: [facility] Pa And Lat (2 Views)05/05/2018 8:54 am CLINICAL HISTORY: Cough COMPARISON: July 04 FINDINGS: Mild bilateral pulmonary opacities appear resolved. Bibasilar atelectasis is unchanged Bilateral pleural effusions appear minimally diminished in size. This could be a true finding or seco ndary to different positioning. No other change noted
--- NOTE | 2018-05-05 10:25 | RAD REPORT ---
EXAM DESCRIPTION: RAD - Chest Single View - 05/04/2018 11:09 pm CLINICAL HISTORY: DYSPNEA. COMPARISON: None. FINDINGS: There are moderate bilateral pleural effusions with adjacent atelectasis, also present on CT scan from 05/02/2018. The heart size is obscured. Generalized osteopenia is present. No discernible pneumothorax. No acute osseous findings. IMPRESSION: Moderate bilateral pleural effusions with adjacent atelectasis. Electronically signed by: Neo Oh MD 05/04/2018 9:51 PM CDT Due to temporary technical issues with the PACS/Fluency reporting system, reports are being signed by the in house radiologist as a courtesy to ensure prompt reporting. The interpreting radiologist is f ully responsible for the content of the report.
--- NOTE | 2018-05-05 10:32 | EKG ---
Test Date: 2018-05-03 Test Time: 23:07:08 Coordinator Integrated Marketing: NINA MEASUREMENT RESULTS: Intervals: Rate: 147 DE: QRSD: 86 QT: 310 QTc: 485 [place]: P: DE: QRS: -3 T: -1 INTERPRETIVE STATEMENTS: Atrial fibrillation with rapid ventricular response Nonspecific ST abnormality, probably digitalis effect Abnormal ECG Compared to ECG 05/01/2018 18:52:16 ST (T wave) deviation now present Sinus rhythm no longer present Atrial premature complex(es) no longer present Electronically Signed On 05-04-18 09:37:28 CDT by Chidi Mansfield
--- NOTE | 2018-05-05 12:53 | P.PN ---
Subjective Date of Service: 05/05/18 Chief Complaint: Shortness of breath Subjective: Improving WE ARE STILL WAITING FOR ECHOCARDIOGRAM. SHE IS STILL DYSPNEIC AT REST. DR JOHANSEN HAS BEEN CONSULTED. THIS AM SHE HAD NECK PAIN, MID BACK PAIN. ROBAXIN HELPED AND SHE WILL GET MORE PRN. SHE IS SITTING SHE CAN'T BREATH AND SO SHE HAS NECK PAIN. SHE LAST NIGHT HAD CONVERSION TO ATRIAL FIBRILLATION. I GAVER HER BETAPACE, ELIQUIS AND CONSULTED DR. WATERMAN. HER HEART RATE IS DOWN FROM 150 TO 100 NOW. THIS PM NURSE CALLED THAT SHE IS MORE DYSPNEIC DESPITE DIURESIS AND NEBULIZER WITH IV SOLUMEDROL. I ADIVSED NURSE TO MOVE HER TO ICU FOR FURTHER THERAPY, ORDERED CBC, BASIC M. PROFILE AND BNP, CXR, STAT. I ALSO CALLED DR. JOHANSEN ABOUT CHANGE OF CONDITION AND FOLLOW UP. HE THOUGHT SHE WAS VERY ANXIOUS IN THE MORNING. MS. HARRELL HAS IMPROVED VERY WELL. SHE COULD NOT TOLERATE LASIX SHE HAD IBS WITH IT. SHE DID WELL WHEN I CHANGED TO BUMEX BID IV AND SHE LOST ABOUT 2 LT OF URINE OVERNIGHT. HER CXR HAS IMPROVED AND SHE IS BACK TO FLOOR NOW. Review of Systems 10-point ROS is otherwise unremarkable General: Weakness Respiratory: Shortness of Breath Physical Examination - Vital Signs Temperature: 98.1 F Blood Pressure: 137/69 Pulse: 69 Respirations: 20 Pulse Ox (%): 93 - Physical Exam General: Alert, Mild distress, Obese HEENT: Atraumatic, PERRLA, EOMI Neck: Supple, JVD not distended Respiratory: Diminished Cardiovascular: Regular rate/rhythm, Normal S1 S2 Gastrointestinal: Normal bowel sounds, No tenderness Musculoskeletal: No tenderness Integumentary: No rashes Neurological: Normal speech, Normal tone, Normal affect Lymphatics: No axilla or inguinal lymphadenopathy - Studies Medications List Reviewed: Yes Assessment And Plan - Current Problems (Diagnosis) (1) Large pleural effusion Current Visit: Yes Status: Chronic Plan: SHE HAS NO TUMOR ON CT SCAN. NO SIGNS OF CHF CLINICALLY, NORMAL BNP. ORDER ECHO ORDER SONOGRAM OF ABDOMEN. LOW ALBUMIN CAN BE FROM NEPHROTIC SYNDROME OR CIRRHOSIS FROM FATTY LIVER. DR. JOHANSEN CONSULTED FOR TAP. ECHO PENDING. MAY NEED TO TAP IT. DR JOHANSEN IS TREATING THIS WITH DIURESIS IT SEEMS TO HAVE DIAGNOSIS OF DIASTOLIC DYSFUNCTION. PROTEIN IN URINE IS NOT SIGNIFICANT- FOR NEPH SYNDROME. (2) Diastolic CHF Current Visit: Yes Status: Acute Plan: IV DIURESIS. SHE SAYS LASREGINALDO GIVES HER IBS SS SO I CHANGED TO BUMEX IV BID. SHE IS ALREADY ON B TRACE FROM LAST NIGHT. DR. WATERMAN IS CONSULTED. BUMEX IV WORKED ABOVE. SE OF TYREGINALDO. Qualifiers: Heart failure chronicity: acute Qualified Code(s): I50.31 - Acute diastolic (congestive) heart failure (3) New onset a-fib Current Visit: Yes Status: Acute Plan: HPI. (4) Neck pain Current Visit: Yes Status: Chronic Plan: GABAPENTIN AND ROBAXIN (5) Thrombocythemia Current Visit: Yes Status: Acute Plan: MOST LIKELY FROM ACUTE PHASE REACTION. SHE DID NOT HAVE THIS BEFORE. WILL FU AND MAY IMPROVE ITSELF.
[2018-05-06] MEDS: ACETAMINOPHEN 500 MG TAB PO PRN ×3 (00:04→18:43)
[2018-05-06] MEDS: SOTALOL HCL 80 MG TAB PO SCH ×2 (05:21→17:20)
[2018-05-06] MEDS: LEVALBUTEROL 0.63 MG/3 ML NEB NEB PRN (08:45)
--- NOTE | 2018-05-06 08:58 | P.PN ---
Subjective Date of Service: 05/06/18 Chief Complaint: Shortness of breath Subjective: Improving WE ARE STILL WAITING FOR ECHOCARDIOGRAM. SHE IS STILL DYSPNEIC AT REST. DR JOHANSEN HAS BEEN CONSULTED. THIS AM SHE HAD NECK PAIN, MID BACK PAIN. ROBAXIN HELPED AND SHE WILL GET MORE PRN. SHE IS SITTING SHE CAN'T BREATH AND SO SHE HAS NECK PAIN. SHE LAST NIGHT HAD CONVERSION TO ATRIAL FIBRILLATION. I GAVER HER BETAPACE, ELIQUIS AND CONSULTED DR. WATERMAN. HER HEART RATE IS DOWN FROM 150 TO 100 NOW. THIS PM NURSE CALLED THAT SHE IS MORE DYSPNEIC DESPITE DIURESIS AND NEBULIZER WITH IV SOLUMEDROL. I ADIVSED NURSE TO MOVE HER TO ICU FOR FURTHER THERAPY, ORDERED CBC, BASIC M. PROFILE AND BNP, CXR, STAT. I ALSO CALLED DR. JOHANSEN ABOUT CHANGE OF CONDITION AND FOLLOW UP. HE THOUGHT SHE WAS VERY ANXIOUS IN THE MORNING. MS. HARRELL HAS IMPROVED VERY WELL. SHE COULD NOT TOLERATE LASIX SHE HAD IBS WITH IT. SHE DID WELL WHEN I CHANGED TO BUMEX BID IV AND SHE LOST ABOUT 2 LT OF URINE OVERNIGHT. HER CXR HAS IMPROVED AND SHE IS BACK TO FLOOR NOW. WORRIED A LOT USUALLY. SOME DYSPNEA TODAY BUT WANTING NEBS. IT SEEMS TO HELP. Review of Systems 10-point ROS is otherwise unremarkable General: Weakness, Malaise Respiratory: Shortness of Breath Physical Examination - Vital Signs Temperature: 97.1 F Blood Pressure: 120/59 Pulse: 64 Respirations: 20 Pulse Ox (%): 90 - Physical Exam General: Mild distress HEENT: Atraumatic, PERRLA, EOMI Neck: Supple, JVD not distended Respiratory: Diminished Cardiovascular: Regular rate/rhythm, Normal S1 S2 Gastrointestinal: Normal bowel sounds, No tenderness Musculoskeletal: No tenderness Integumentary: No rashes Neurological: Normal speech, Normal tone, Normal affect Lymphatics: No axilla or inguinal lymphadenopathy - Studies Medications List Reviewed: Yes Assessment And Plan - Current Problems (Diagnosis) (1) Large pleural effusion Current Visit: Yes Status: Chronic Plan: SHE HAS NO TUMOR ON CT SCAN. NO SIGNS OF CHF CLINICALLY, NORMAL BNP. ORDER ECHO ORDER SONOGRAM OF ABDOMEN. LOW ALBUMIN CAN BE FROM NEPHROTIC SYNDROME OR CIRRHOSIS FROM FATTY LIVER. DR. JOHANSEN CONSULTED FOR TAP. ECHO PENDING. MAY NEED TO TAP IT. DR JOHANSEN IS TREATING THIS WITH DIURESIS IT SEEMS TO HAVE DIAGNOSIS OF DIASTOLIC DYSFUNCTION. PROTEIN IN URINE IS NOT SIGNIFICANT- FOR NEPH SYNDROME. (2) Diastolic CHF Current Visit: Yes Status: Acute Plan: IV DIURESIS. SHE SAYS LASIX GIVES HER IBS SS SO I CHANGED TO BUMEX IV BID. SHE IS ALREADY ON B TRACE FROM LAST NIGHT. DR. WATERMAN IS CONSULTED. BUMEX IV WORKED ABOVE. SE OF TYREGINALDO. Qualifiers: Heart failure chronicity: acute Qualified Code(s): I50.31 - Acute diastolic (congestive) heart failure (3) New onset a-fib Current Visit: Yes Status: Acute Plan: HPI. (4) Neck pain Current Visit: Yes Status: Chronic Plan: GABAPENTIN AND ROBAXIN (5) Thrombocythemia Current Visit: Yes Status: Acute Plan: MOST LIKELY FROM ACUTE PHASE REACTION. SHE DID NOT HAVE THIS BEFORE. WILL FU AND MAY IMPROVE ITSELF. (6) Asthma Current Visit: Yes Status: Acute Plan: RESUME NEBS , IT HELPS. STEROIDS STOPPED YESTERDAY. WILL FU IF NEED AGAIN. Qualifiers: Asthma severity: moderate
[2018-05-06] MEDS: BUMETANIDE 1 MG/4 ML VIAL IV SCH (09:00)
[2018-05-06] MEDS: SPIRONOLACTONE 25 MG TABLET PO SCH ×2 (09:10→20:54)
[2018-05-06] MEDS: METHOCARBAMOL 750 MG TAB PO SCH ×3 (09:10→20:56)
[2018-05-06] MEDS: APIXABAN 5 MG TABLET PO SCH ×2 (09:11→20:56)
[2018-05-06] MEDS: GABAPENTIN 100 MG CAP PO SCH ×3 (09:11→20:54)
[2018-05-06] MEDS: LOSARTAN POTASSIUM 50 MG TABLET PO SCH (09:12)
[2018-05-06] MEDS: LIDOCAINE 5% PATCH TOP SCH (10:19)
[2018-05-06] MEDS: BUMETANIDE 2.5 MG/10 ML VIAL IV SCH ×2 (10:19→20:59)
[2018-05-06] MEDS: LEVALBUTEROL 0.63 MG/3 ML NEB NEB SCH ×2 (14:25→20:15)
[2018-05-07] MEDS: LEVALBUTEROL 0.63 MG/3 ML NEB NEB SCH ×4 (01:20→19:59)
[2018-05-07] MEDS: SOTALOL HCL 80 MG TAB PO SCH ×2 (06:15→17:02)
--- NOTE | 2018-05-07 07:15 | PN ---
Date of Progress Note: 05/06/2018 Ms. Ferreira is a patient of Dr. Ernandez. Dr. Mansfield saw her for atrial fibrillation. She was started on Betapace and Eliquis. She is in normal sinus rhythm. QT has not been prolonged. She can go mariella e from our standpoint. I will see her in the office in the next couple of weeks. TONIA/ROQUE Voice ID: [id number] Report ID: [id number]
[2018-05-07] MEDS: LOSARTAN POTASSIUM 50 MG TABLET PO SCH (09:34)
[2018-05-07] MEDS: SPIRONOLACTONE 25 MG TABLET PO SCH ×2 (09:34→21:53)
[2018-05-07] MEDS: GABAPENTIN 100 MG CAP PO SCH ×3 (09:35→21:54)
[2018-05-07] MEDS: METHOCARBAMOL 750 MG TAB PO SCH ×3 (09:35→21:54)
[2018-05-07] MEDS: APIXABAN 5 MG TABLET PO SCH ×2 (09:35→21:54)
[2018-05-07] MEDS: BUMETANIDE 2.5 MG/10 ML VIAL IV SCH ×2 (09:36→21:54)
[2018-05-07] MEDS: LIDOCAINE 5% PATCH TOP SCH (09:37)
[2018-05-07 12:33] LABS: Absolute Lymphocytes (CBC) 1.7 K/uL (0.7-4.9); Absolute Monocytes 0.9 K/uL (0.1-1.3); Absolute Neutrophil 8.8 K/uL (1.8-8.0); Basophils % 0.9 % (0-1.3); Eosinophils % 0.3 % (0-4.4); Hematocrit 44.9 % (36.0-45.0); Lymphocytes % 14.8 % (15.3-44.8); MPV 6.6 fL (7.6-11.3); Monocytes % 7.5 % (3.3-12.3); RBC Red Blood Cell Count 4.77 M/uL (3.86-4.86)
[2018-05-07 12:54] LABS: ALT/SGPT 27 U/L (12-78); AST/SGOT 20 U/L (15-37); Albumin 2.9 g/dL (3.4-5.0); Alkaline Phosphatase 89 U/L (45-117); BUN Blood Urea Nitrogen 16 mg/dL (7-18); Bicarbonate 35 mmol/L (21-32); Bilirubin Direct < 0.1 mg/dL (0-0.2); Bilirubin Total 0.4 mg/dL (0.2-1.0); Glucose Level 140 mg/dL (74-106); Potassium 3.9 mmol/L (3.5-5.1); Protein, Total 7.5 g/dL (6.4-8.2); Sodium Level 134 mmol/L (136-145)
[2018-05-07 13:27] LABS: Urine White Blood Cell Casts OK
[2018-05-07 13:28] LABS: Blood Morphology Comment NOT SEEN (NOT SEEN); Platelet Estimate INCR
[2018-05-07 13:29] LABS: Arterial Blood Carboxyhemoglob 1.1 % (0-1.5); Blood Gas Oxyhemoglobin 91.2 % (94-97); Blood O2 Saturation 92.6 % (92-98.5)
[2018-05-07] MEDS: METHYLPREDNISOLONE 40 MG INJ IV SCH ×2 (17:02→23:48)
--- NOTE | 2018-05-07 17:12 | P.PN ---
Subjective Date of Service: 05/07/18 Chief Complaint: Shortness of breath Subjective: C/O voiced WE ARE STILL WAITING FOR ECHOCARDIOGRAM. SHE IS STILL DYSPNEIC AT REST. DR JOHANSEN HAS BEEN CONSULTED. THIS AM SHE HAD NECK PAIN, MID BACK PAIN. ROBAXIN HELPED AND SHE WILL GET MORE PRN. SHE IS SITTING SHE CAN'T BREATH AND SO SHE HAS NECK PAIN. SHE LAST NIGHT HAD CONVERSION TO ATRIAL FIBRILLATION. I GAVER HER BETAPACE, ELIQUIS AND CONSULTED DR. WATERMAN. HER HEART RATE IS DOWN FROM 150 TO 100 NOW. THIS PM NURSE CALLED THAT SHE IS MORE DYSPNEIC DESPITE DIURESIS AND NEBULIZER WITH IV SOLUMEDROL. I ADIVSED NURSE TO MOVE HER TO ICU FOR FURTHER THERAPY, ORDERED CBC, BASIC M. PROFILE AND BNP, CXR, STAT. I ALSO CALLED DR. JOHANSEN ABOUT CHANGE OF CONDITION AND FOLLOW UP. HE THOUGHT SHE WAS VERY ANXIOUS IN THE MORNING. MS. HARRELL HAS IMPROVED VERY WELL. SHE COULD NOT TOLERATE LASIX SHE HAD IBS WITH IT. SHE DID WELL WHEN I CHANGED TO BUMEX BID IV AND SHE LOST ABOUT 2 LT OF URINE OVERNIGHT. HER CXR HAS IMPROVED AND SHE IS BACK TO FLOOR NOW. WORRIED A LOT USUALLY. SOME DYSPNEA TODAY BUT WANTING NEBS. IT SEEMS TO HELP. SHE SAYS DYSPNEA IS BETTER BUT I SEE SOME LABORED BREATHING. SHE HAS NOT WALKED TODAY. SHE HAS NO CHEST PAIN. SHE HAS LOT OF QUESTIONS THAT I ANSWERED ABOUT OXYGEN NEED, DC PLAN ETC. Review of Systems 10-point ROS is otherwise unremarkable General: Weakness, Malaise Respiratory: Shortness of Breath Physical Examination - Vital Signs Temperature: 97.8 F Blood Pressure: 125/63 Pulse: 73 Respirations: 17 Pulse Ox (%): 94 - Physical Exam General: Alert, Mild distress HEENT: Atraumatic, PERRLA, EOMI Neck: Supple, JVD not distended Respiratory: Clear to auscultation bilaterally, Normal air movement Cardiovascular: Regular rate/rhythm, Normal S1 S2 Gastrointestinal: Normal bowel sounds, No tenderness Musculoskeletal: No tenderness Integumentary: No rashes Neurological: Normal speech, Normal tone, Normal affect, Other (ANXIOUS NATURE, WORRIES.) Lymphatics: No axilla or inguinal lymphadenopathy - Studies Medications List Reviewed: Yes Assessment And Plan - Current Problems (Diagnosis) (1) Large pleural effusion Current Visit: Yes Status: Chronic Plan: SHE HAS NO TUMOR ON CT SCAN. NO SIGNS OF CHF CLINICALLY, NORMAL BNP. ORDER ECHO ORDER SONOGRAM OF ABDOMEN. LOW ALBUMIN CAN BE FROM NEPHROTIC SYNDROME OR CIRRHOSIS FROM FATTY LIVER. DR. JOHANSEN CONSULTED FOR TAP. ECHO PENDING. MAY NEED TO TAP IT. DR JOHANSEN IS TREATING THIS WITH DIURESIS IT SEEMS TO HAVE DIAGNOSIS OF DIASTOLIC DYSFUNCTION. PROTEIN IN URINE IS NOT SIGNIFICANT- FOR NEPH SYNDROME. (2) Diastolic CHF Current Visit: Yes Status: Acute Plan: IV DIURESIS. SHE SAYS LASIX GIVES HER IBS SS SO I CHANGED TO BUMEX IV BID. SHE IS ALREADY ON B TRACE FROM LAST NIGHT. DR. WATERMAN IS CONSULTED. BUMEX IV WORKED ABOVE. SE OF LASIX. BUMEX WORKS. SOME IBS TODAY. Qualifiers: Heart failure chronicity: acute Qualified Code(s): I50.31 - Acute diastolic (congestive) heart failure (3) New onset a-fib Current Visit: Yes Status: Acute Plan: HPI. (4) Neck pain Current Visit: Yes Status: Chronic Plan: GABAPENTIN AND ROBAXIN (5) Thrombocythemia Current Visit: Yes Status: Acute Plan: MOST LIKELY FROM ACUTE PHASE REACTION. SHE DID NOT HAVE THIS BEFORE. WILL FU AND MAY IMPROVE ITSELF. (6) Asthma Current Visit: Yes Status: Acute Plan: RESUME NEBS , IT HELPS. STEROIDS STOPPED YESTERDAY. WILL FU IF NEED AGAIN. Qualifiers: Asthma severity: moderate (7) Thrombocytosis Current Visit: Yes Status: Acute Plan: THIS IS NEW. PLATELETS HAVE RISEN HERE ONLY. IT WAS CLOSE TO NORMAL OUTPATIENT. I WILL DISCUSS WITH HER IN AM AND THEN CONSULT DIRECTOR MUSIC. SHE IS A VERY ANXIOUS LADY SO I HAVE TO TALK TO HER FIRST.
[2018-05-08] MEDS: LEVALBUTEROL 0.63 MG/3 ML NEB NEB SCH ×4 (02:03→20:05)
[2018-05-08] MEDS: SOTALOL HCL 80 MG TAB PO SCH ×2 (05:26→17:51)
[2018-05-08] MEDS: METHYLPREDNISOLONE 40 MG INJ IV SCH ×4 (05:26→23:50)
[2018-05-08] MEDS: LIDOCAINE 5% PATCH TOP SCH (09:00)
[2018-05-08] MEDS: GABAPENTIN 100 MG CAP PO SCH ×3 (09:07→21:43)
[2018-05-08] MEDS: METHOCARBAMOL 750 MG TAB PO SCH ×3 (09:07→21:45)
[2018-05-08] MEDS: LOSARTAN POTASSIUM 50 MG TABLET PO SCH (09:07)
[2018-05-08] MEDS: SPIRONOLACTONE 25 MG TABLET PO SCH ×2 (09:08→21:43)
[2018-05-08] MEDS: BUMETANIDE 2.5 MG/10 ML VIAL IV SCH ×2 (09:09→21:00)
[2018-05-08] MEDS: APIXABAN 5 MG TABLET PO SCH ×2 (09:10→21:43)
[2018-05-08 11:43] LABS: Absolute Lymphocytes (CBC) 1.2 K/uL (0.7-4.9); Absolute Monocytes 0.2 K/uL (0.1-1.3); Absolute Neutrophil 9.8 K/uL (1.8-8.0); Basophils % 0.7 % (0-1.3); Hematocrit 43.1 % (36.0-45.0); Lymphocytes % 10.8 % (15.3-44.8); MPV 6.7 fL (7.6-11.3); Monocytes % 1.9 % (3.3-12.3); RBC Red Blood Cell Count 4.62 M/uL (3.86-4.86)
[2018-05-08 11:56] LABS: BUN Blood Urea Nitrogen 19 mg/dL (7-18); Bicarbonate 32 mmol/L (21-32); Glucose Level 143 mg/dL (74-106); Potassium 4.1 mmol/L (3.5-5.1); Sodium Level 134 mmol/L (136-145)
[2018-05-08 12:30] LABS: Blood Morphology Comment NOT SEEN (NOT SEEN); Platelet Estimate INCR; Platelets, Giant RARE
[2018-05-08] MEDS: SERTRALINE HCL 50 MG TAB PO SCH (13:24)
--- NOTE | 2018-05-08 13:45 | P.PN ---
Subjective Date of Service: 05/08/18 Chief Complaint: Shortness of breath Subjective: Improving WE ARE STILL WAITING FOR ECHOCARDIOGRAM. SHE IS STILL DYSPNEIC AT REST. DR JOHANSEN HAS BEEN CONSULTED. THIS AM SHE HAD NECK PAIN, MID BACK PAIN. ROBAXIN HELPED AND SHE WILL GET MORE PRN. SHE IS SITTING SHE CAN'T BREATH AND SO SHE HAS NECK PAIN. SHE LAST NIGHT HAD CONVERSION TO ATRIAL FIBRILLATION. I GAVER HER BETAPACE, ELIQUIS AND CONSULTED DR. WATERMAN. HER HEART RATE IS DOWN FROM 150 TO 100 NOW. THIS PM NURSE CALLED THAT SHE IS MORE DYSPNEIC DESPITE DIURESIS AND NEBULIZER WITH IV SOLUMEDROL. I ADIVSED NURSE TO MOVE HER TO ICU FOR FURTHER THERAPY, ORDERED CBC, BASIC M. PROFILE AND BNP, CXR, STAT. I ALSO CALLED DR. JOHANSEN ABOUT CHANGE OF CONDITION AND FOLLOW UP. HE THOUGHT SHE WAS VERY ANXIOUS IN THE MORNING. MS. HARRELL HAS IMPROVED VERY WELL. SHE COULD NOT TOLERATE LASIX SHE HAD IBS WITH IT. SHE DID WELL WHEN I CHANGED TO BUMEX BID IV AND SHE LOST ABOUT 2 LT OF URINE OVERNIGHT. HER CXR HAS IMPROVED AND SHE IS BACK TO FLOOR NOW. WORRIED A LOT USUALLY. SOME DYSPNEA TODAY BUT WANTING NEBS. IT SEEMS TO HELP. SHE SAYS DYSPNEA IS BETTER BUT I SEE SOME LABORED BREATHING. SHE HAS NOT WALKED TODAY. SHE HAS NO CHEST PAIN. SHE HAS LOT OF QUESTIONS THAT I ANSWERED ABOUT OXYGEN NEED, DC PLAN ETC. BETTER TODAY BUT SOME COUGH. SHE DOES NOT WANT TO REMOVE MCCLELLAND. SHE IS ANXIOUS ABOUT GETTING TO COMMODE ON TIME. Review of Systems 10-point ROS is otherwise unremarkable Physical Examination - Vital Signs Temperature: 97.3 F Blood Pressure: 103/63 Pulse: 70 Respirations: 17 Pulse Ox (%): 95 - Physical Exam General: Mild distress, Obese HEENT: Atraumatic, PERRLA, EOMI Neck: Supple, JVD not distended Respiratory: Clear to auscultation bilaterally, Normal air movement Cardiovascular: Regular rate/rhythm, Normal S1 S2 Gastrointestinal: Normal bowel sounds, No tenderness Musculoskeletal: No tenderness Integumentary: No rashes Neurological: Normal speech, Normal tone, Normal affect Lymphatics: No axilla or inguinal lymphadenopathy - Studies Medications List Reviewed: Yes Assessment And Plan - Current Problems (Diagnosis) (1) Large pleural effusion Current Visit: Yes Status: Chronic Plan: SHE HAS NO TUMOR ON CT SCAN. NO SIGNS OF CHF CLINICALLY, NORMAL BNP. ORDER ECHO ORDER SONOGRAM OF ABDOMEN. LOW ALBUMIN CAN BE FROM NEPHROTIC SYNDROME OR CIRRHOSIS FROM FATTY LIVER. DR. JOHANSEN CONSULTED FOR TAP. ECHO PENDING. MAY NEED TO TAP IT. DR JOHANSEN IS TREATING THIS WITH DIURESIS IT SEEMS TO HAVE DIAGNOSIS OF DIASTOLIC DYSFUNCTION. PROTEIN IN URINE IS NOT SIGNIFICANT- FOR NEPH SYNDROME. FU CXR TAPERING BUMEX. (2) Diastolic CHF Current Visit: Yes Status: Acute Plan: IV DIURESIS. SHE SAYS LASIX GIVES HER IBS SS SO I CHANGED TO BUMEX IV BID. SHE IS ALREADY ON B TRACE FROM LAST NIGHT. DR. WATERMAN IS CONSULTED. BUMEX IV WORKED ABOVE. SE OF LASIX. BUMEX WORKS. SOME IBS TODAY. ABOVE. Qualifiers: Heart failure chronicity: acute Qualified Code(s): I50.31 - Acute diastolic (congestive) heart failure (3) New onset a-fib Current Visit: Yes Status: Acute Plan: HPI. CONTROLLED WITH MEDS. (4) Neck pain Current Visit: Yes Status: Chronic Plan: GABAPENTIN AND ROBAXIN (5) Thrombocythemia Current Visit: Yes Status: Acute Plan: MOST LIKELY FROM ACUTE PHASE REACTION. SHE DID NOT HAVE THIS BEFORE. WILL FU AND MAY IMPROVE ITSELF. (6) Asthma Current Visit: Yes Status: Acute Plan: RESUME NEBS , IT HELPS. STEROIDS STOPPED YESTERDAY. WILL FU IF NEED AGAIN. Qualifiers: Asthma severity: moderate (7) Thrombocytosis Current Visit: Yes Status: Acute Plan: THIS IS NEW. PLATELETS HAVE RISEN HERE ONLY. IT WAS CLOSE TO NORMAL OUTPATIENT. I WILL DISCUSS WITH HER IN AM AND THEN CONSULT PRODUCTION CONTROL COORDINATOR. SHE IS A VERY ANXIOUS LADY SO I HAVE TO TALK TO HER FIRST.4 CURRENT CONDITION MAY HAVE EXACERBATED IT. HER COUNT IS HIGH TO 1 MIL . NOW. CONSULTED PRODUCTION CONTROL COORDINATOR. NONE OF HER MEDS SEEM TO CAUSE THIS HYPOXIA ITSELF CAN CAUSE THIS. DOUBT MYELOPROLIFERATIVE CONDTION IT CAME TOO FAST TO THIS LEVEL.
--- NOTE | 2018-05-08 14:56 | RAD REPORT ---
EXAM DESCRIPTION: Cornell Cope And Damian (2 Views)05/08/2018 2:29 pm CLINICAL HISTORY: Shortness of breath COMPARISON: May 05 FINDINGS: Left pleural effusion appears mildly diminished in size. No significant change in the righ t pleural effusion Bibasilar atelectasis The heart is borderline enlarged
[2018-05-08 15:22] LABS: C-Reactive Protein 14.7 mg/L (<3.00); Ferritin 163.3 ng/mL (8-388)
[2018-05-08 15:26] LABS: RBC Red Blood Cell Count 4.6 M/uL (3.86-4.86)
[2018-05-08] MEDS: ACETAMINOPHEN 500 MG TAB PO PRN (23:50)
[2018-05-09] MEDS: LEVALBUTEROL 0.63 MG/3 ML NEB NEB SCH ×4 (01:35→20:00)
[2018-05-09] MEDS: LIDOCAINE 5% PATCH TOP SCH ×2 (04:25→08:46)
[2018-05-09] MEDS: ACETAMINOPHEN 500 MG TAB PO PRN (05:30)
[2018-05-09] MEDS: SOTALOL HCL 80 MG TAB PO SCH ×2 (05:30→17:17)
[2018-05-09] MEDS: METHYLPREDNISOLONE 40 MG INJ IV SCH ×2 (05:36→11:38)
[2018-05-09 07:04] LABS: BUN Blood Urea Nitrogen 25 mg/dL (7-18); Bicarbonate 26 mmol/L (21-32); Glucose Level 134 mg/dL (74-106); Magnesium 2.3 mg/dL (1.8-2.4); Potassium 3.9 mmol/L (3.5-5.1); Sodium Level 132 mmol/L (136-145)
[2018-05-09 07:13] LABS: Absolute Lymphocytes (CBC) 1.4 K/uL (0.7-4.9); Absolute Monocytes 0.3 K/uL (0.1-1.3); Absolute Neutrophil 10.4 K/uL (1.8-8.0); Basophils % 0.1 % (0-1.3); Hematocrit 42.1 % (36.0-45.0); Lymphocytes % 11.3 % (15.3-44.8); MPV 7.2 fL (7.6-11.3); Monocytes % 2.7 % (3.3-12.3); RBC Red Blood Cell Count 4.52 M/uL (3.86-4.86)
[2018-05-09] MEDS: SERTRALINE HCL 50 MG TAB PO SCH (08:46)
[2018-05-09] MEDS: APIXABAN 5 MG TABLET PO SCH ×2 (08:54→21:26)
[2018-05-09] MEDS: SPIRONOLACTONE 25 MG TABLET PO SCH ×2 (08:54→21:25)
[2018-05-09] MEDS: GABAPENTIN 100 MG CAP PO SCH ×3 (08:54→21:27)
[2018-05-09] MEDS: METHOCARBAMOL 750 MG TAB PO SCH ×3 (08:54→21:26)
[2018-05-09] MEDS: LOSARTAN POTASSIUM 50 MG TABLET PO SCH (08:54)
[2018-05-09] MEDS: BUMETANIDE 2.5 MG/10 ML VIAL IV SCH (08:55)
--- NOTE | 2018-05-09 12:19 | P.PN ---
Subjective Date of Service: 05/09/18 Chief Complaint: Shortness of breath Patient is doing better shortness of breath has improved still continues to remain very anxious did not tolerate Zoloft was recently put on steroids Review of Systems General: Weakness, Other (Complains of anxiety and insomnia) Respiratory: Cough Physical Examination - Vital Signs Temperature: 97.6 F Blood Pressure: 131/69 Pulse: 62 Respirations: 18 Pulse Ox (%): 95 - Physical Exam General: Alert, In no apparent distress Respiratory: Diminished (Diminished air entry bilaterally) Cardiovascular: No edema - Studies Medications List Reviewed: Yes Assessment & Plan - Problems (Diagnosis) (1) Diastolic heart failure Current Visit: Yes Status: Acute Plan: Patient is doing better pleural effusion has somewhat decreased shortness of breath has improved continue with spironolactone patient has AFib now in normal sinus rhythm is anti coagulated and on sotalol patient can be discharged home on spironolactone consider Remeron in Dc steroids Qualifiers: Heart failure chronicity: acute on chronic Qualified Code(s): I50.33 - Acute on chronic diastolic (congestive) heart failure (2) Thrombocytosis Current Visit: Yes Status: Acute Plan: Patient probably has reactive thrombocytosis her baseline platelet count was around 500 last year he did increased to a 1000 and not back to her up suspect is her baseline Discharge Plan: Home Plan to discharge in: 24 Hours
[2018-05-09 15:43] LABS: Absolute Lymphocytes (CBC) 1.1 K/uL (0.7-4.9); Absolute Monocytes 0.6 K/uL (0.1-1.3); Absolute Neutrophil 12.4 K/uL (1.8-8.0); Basophils % 0.3 % (0-1.3); Hematocrit 37.8 % (36.0-45.0); Lymphocytes % 7.8 % (15.3-44.8); MPV 6.6 fL (7.6-11.3); Monocytes % 4.4 % (3.3-12.3); RBC Red Blood Cell Count 4.09 M/uL (3.86-4.86)
--- NOTE | 2018-05-09 17:31 | P.PN ---
Subjective Date of Service: 05/09/18 Chief Complaint: Shortness of breath Subjective: Improving WE ARE STILL WAITING FOR ECHOCARDIOGRAM. SHE IS STILL DYSPNEIC AT REST. DR JOHANSEN HAS BEEN CONSULTED. THIS AM SHE HAD NECK PAIN, MID BACK PAIN. ROBAXIN HELPED AND SHE WILL GET MORE PRN. SHE IS SITTING SHE CAN'T BREATH AND SO SHE HAS NECK PAIN. SHE LAST NIGHT HAD CONVERSION TO ATRIAL FIBRILLATION. I GAVER HER BETAPACE, ELIQUIS AND CONSULTED DR. WATERMAN. HER HEART RATE IS DOWN FROM 150 TO 100 NOW. THIS PM NURSE CALLED THAT SHE IS MORE DYSPNEIC DESPITE DIURESIS AND NEBULIZER WITH IV SOLUMEDROL. I ADIVSED NURSE TO MOVE HER TO ICU FOR FURTHER THERAPY, ORDERED CBC, BASIC M. PROFILE AND BNP, CXR, STAT. I ALSO CALLED DR. JOHANSEN ABOUT CHANGE OF CONDITION AND FOLLOW UP. HE THOUGHT SHE WAS VERY ANXIOUS IN THE MORNING. MS. HARRELL HAS IMPROVED VERY WELL. SHE COULD NOT TOLERATE LASIX SHE HAD IBS WITH IT. SHE DID WELL WHEN I CHANGED TO BUMEX BID IV AND SHE LOST ABOUT 2 LT OF URINE OVERNIGHT. HER CXR HAS IMPROVED AND SHE IS BACK TO FLOOR NOW. WORRIED A LOT USUALLY. SOME DYSPNEA TODAY BUT WANTING NEBS. IT SEEMS TO HELP. SHE SAYS DYSPNEA IS BETTER BUT I SEE SOME LABORED BREATHING. SHE HAS NOT WALKED TODAY. SHE HAS NO CHEST PAIN. SHE HAS LOT OF QUESTIONS THAT I ANSWERED ABOUT OXYGEN NEED, DC PLAN ETC. BETTER TODAY BUT SOME COUGH. SHE DOES NOT WANT TO REMOVE MCCLELLAND. SHE IS ANXIOUS ABOUT GETTING TO COMMODE ON TIME. SHE IS LOT BETTER. STILL VERY ANXIOUS. STARTS CRYING, PER DAUGHTER SHE HAS ALWAYS BEEN EMOTIONAL LIKE THIS. SHE GAVE ME 3 PAGES NOTES TO READ. MAINLY SHE HAS BEEN GOOD ON XANAX AND RESTORIL BEFORE. I ADVISED THESE ARE NOT THE BEST DRUGS FOR ANYONE. SHE HAS TAKEN ELAVIL BEFORE WITHOUT SE. THIS TIME ZOLOFT GAVE HER HEADACHES. Review of Systems 10-point ROS is otherwise unremarkable General: Weakness, Malaise Respiratory: Shortness of Breath Physical Examination - Vital Signs Temperature: 97.6 F Blood Pressure: 131/69 Pulse: 62 Respirations: 18 Pulse Ox (%): 95 - Physical Exam General: Alert, Mild distress HEENT: Atraumatic, PERRLA, EOMI Neck: Supple, JVD not distended Respiratory: Clear to auscultation bilaterally, Normal air movement Cardiovascular: Regular rate/rhythm, Normal S1 S2 Gastrointestinal: Normal bowel sounds, No tenderness Musculoskeletal: No tenderness Integumentary: No rashes Neurological: Normal speech, Normal tone, Normal affect Lymphatics: No axilla or inguinal lymphadenopathy - Studies Medications List Reviewed: Yes Assessment And Plan - Current Problems (Diagnosis) (1) Large pleural effusion Current Visit: Yes Status: Chronic Plan: SHE HAS NO TUMOR ON CT SCAN. NO SIGNS OF CHF CLINICALLY, NORMAL BNP. ORDER ECHO ORDER SONOGRAM OF ABDOMEN. LOW ALBUMIN CAN BE FROM NEPHROTIC SYNDROME OR CIRRHOSIS FROM FATTY LIVER. DR. JOHANSEN CONSULTED FOR TAP. ECHO PENDING. MAY NEED TO TAP IT. DR JOHANSEN IS TREATING THIS WITH DIURESIS IT SEEMS TO HAVE DIAGNOSIS OF DIASTOLIC DYSFUNCTION. PROTEIN IN URINE IS NOT SIGNIFICANT- FOR NEPH SYNDROME. FU CXR TAPERING BUMEX. RESUME BUMEX. CXR SHOWS IMPROVEMENT. (2) Diastolic CHF Current Visit: Yes Status: Acute Plan: IV DIURESIS. SHE SAYS LASIX GIVES HER IBS SS SO I CHANGED TO BUMEX IV BID. SHE IS ALREADY ON B TRACE FROM LAST NIGHT. DR. WATERMAN IS CONSULTED. BUMEX IV WORKED ABOVE. SE OF LASIX. BUMEX WORKS. SOME IBS TODAY. ABOVE. Qualifiers: Heart failure chronicity: acute Qualified Code(s): I50.31 - Acute diastolic (congestive) heart failure (3) New onset a-fib Current Visit: Yes Status: Acute Plan: HPI. CONTROLLED WITH MEDS. (4) Neck pain Current Visit: Yes Status: Chronic Plan: GABAPENTIN AND ROBAXIN (5) Thrombocythemia Current Visit: Yes Status: Acute Plan: MOST LIKELY FROM ACUTE PHASE REACTION. SHE DID NOT HAVE THIS BEFORE. WILL FU AND MAY IMPROVE ITSELF. I CALLED STEFANIA DROP FROM 1000K TO 500K IN ONE DAY IS QUESTIONABLE. SHE DID SOME RESEARCH AND FOUND THAT THE TUBE USED THIS AMWAS A PEDI TUBE AND SO IT MAY HAVE GIVEN FALSE READING. SHE REDID THE LABAND IT IS DOWN TO 884K. WILL FU ON SMALLER DOSE OF STEROIDS. (6) Asthma Current Visit: Yes Status: Acute Plan: RESUME NEBS , IT HELPS. STEROIDS STOPPED YESTERDAY. WILL FU IF NEED AGAIN. Qualifiers: Asthma severity: moderate
[2018-05-09 19:27] LABS: Platelet Estimate INCR
[2018-05-09 19:28] LABS: Blood Morphology Comment NOT SEEN (NOT SEEN); Platelets, Giant FEW PRESENT
[2018-05-09] MEDS ORDERED: AMITRIPTYLINE 10 MG TAB PO SCH (21:00)
--- NOTE | 2018-05-09 21:57 | CON ---
Additional Consulting Physician: Dr. Miguelito Ernandez. Reason For Consultation: Thrombocytosis. History Of Present Illness: Ms. Ferreira was hospitalized on 05/01/2018, when she presented to the [facility] with a week long history of progressively worsening shortness of breath and paroxysmal noctur nal dyspnea. She described a dry cough along with her breathing troubles. There was no history of f ever or phlegm. Evaluation in the ER revealed bilateral pleural effusions on a chest x-ray. BNP was initially unremarkable. Over the past week, she was noted to be in atrial fibrillation and was star toan on medications including Eliquis for the same. The BNP when repeated was significantly elevated at 1094 on 05/04/2018 consistent with congestive heart failure. CBCs during this hospitalization rev ealed an elevated platelet count of 696,000 on admission on the , it florecita to over a million on , platelet count this morning at 5:00 a.m. was 533,000. I was consulted for the thrombocytos is. She denies any history of anemia in the past. There is no history of elevated platelet count. In fa ct, platelet count was normal at 432,000, last October. She denies any history of rectal bleeding, hematemesis or melena. She used to get colonoscopies, but the prep made her very faint and dizzy, a nd hence she did the Cologuard test 2 years ago, which was negative. She gives a history of chronic constipation due to irritable bowel syndrome. She denies any anorexia or weight loss. There is no c omplaints of rash, itching, or dysesthesias. Past Medical History: Is significant for: 1.Hypertension. 2.Atrial fibrillation. 3.Chronic migraines since the age of 32. 4.Chronic asthma since her 30s. 5.Osteoarthritis/chronic back pain. Past Surgical History: Significant for: 1.Cholecystectomy. 2.Ovarian cystectomy. 3.Knee surgery. 4.Epidural back injections. Current Medications: As follows: Alprazolam 0.25 mg p.o. t.i.d. p.r.n. for anxiety and depression. Elavil 10 mg p.o. q.h.s. just started as an antidepressant. Eliquis 5 mg p.o. b.i.d. Bumetanide 1 mg IV b.i.d. Neurontin 100 mg p.o. t.i.d. Methocarbamol 750 mg p.o. t.i.d. scheduled. Losartan 100 mg p.o. daily. Xopenex nebulizer q.6 hours p.r.n. Prednisone 20 mg p.o. daily. Sotalol 80 mg p.o. b.i.d. Spironolactone 25 mg p.o. b.i.d. Allergies: SHE IS ALLERGIC TO ITRACONAZOLE. Social And Family History: Ms. Ferreira is a nonsmoker with no significant history of alcohol use. She is and lives with her . She has two boys and one girl, who are in generally good health. Her mom from a stroke in her 80s. Her father from lung cancer at 69. Physical Examination: General: Reveals a comfortable woman, in no acute distress. She has been afebrile. General physica l examination reveals no pallor, cyanosis, or clubbing. Vital Signs: Temperature was 97.6 at noon today, pulse 62, respirations 18, blood pressure 131/69. She is saturating in the mid 90s on 2 L oxygen by nasal cannula. HEENT examination: Unremarkable. Neck exam: Shows some jugular venous distention with no palpable lymphadenopathy or thyromegaly. Lymph Node: Survey reveals no palpable lymph nodes in the neck, axilla, or groin. Chest: Examination reveals absent breath sounds in the left posterior chest low one-fourth with dull ness to percussion. Vesicular breath sounds are heard in all other lung clarke with no rales or rhon chi heard. Heart: Sounds revealed normal S1, S2. She is in sinus rhythm at this moment. No murmurs were noted . Abdomen: Soft and nontender. Liver and spleen were not palpable. Bowel sounds were present. Neurol ogical: She is alert and oriented, with no acute deficits. Extremities: Show no significant edema. Laboratory Data: A repeat CBC at 3:00 this [place] [address], hemoglobin was 13.1, hematocrit was 37.8, platelet count was 884,000 (533,000 at 6:00 a.m. this morning). A sed ra te done yesterday was elevated at 54. The reticulocyte count was normal. Chemistries revealed a dec reased sodium of 132, potassium was normal at 3.9, BUN and creatinine were 25 and 0.64 respectively. An iron profile revealed a transferrin saturation of 19.8% with a ferritin of 163. C-reactive prote in was elevated at 14.7. LFTs have revealed a chronically decreased albumin of 2.9. Assessment And Plan: Ms. Ferreira is a 77-year-old with: 1.Thrombocytosis. Her transferrin saturation and ferritin is low, given the elevated CRP and sedime ntation rate suggestive of iron deficiency. This thrombocytosis appears to be reactive and secondary to the iron deficiency and chronic congestive heart failure. The platelet count has dropped in the past 24 hours and should return back to baseline once the iron deficiency is corrected and her effusi ons have resolved. She is already on Eliquis for the atrial fibrillation, hence no other venous thro mboembolism prophylaxis is warranted at this time. The plan is to treat her with IV iron through the clinic, since she is already constipated and complains of IBS. She will need a further workup if he r platelet count does not return to baseline upon followup as an outpatient. 2.Iron deficiency. As noted above, I will hold off on oral iron given her history of constipation a nd IBS. I will see her in clinic 1-2 weeks after discharge and plan to treat her with IV iron as an outpatient and to follow up her CBC and platelet count till they return to baseline. Thank you for asking me to see her. Please do not hesitate to call me if you have any other question sDevan FELIX/ROQUE Voice ID: [id number] Report ID: [id number]
[2018-05-09] MEDS: BUMETANIDE 1 MG/4 ML VIAL IV SCH (22:03)
[2018-05-10] MEDS: LEVALBUTEROL 0.63 MG/3 ML NEB NEB SCH ×2 (02:00→08:00)
[2018-05-10 04:07] LABS: HBsAG Nonreactive (Nonreactive); Hepatitis A IgM Antibody Nonreactive
[2018-05-10] MEDS: SOTALOL HCL 80 MG TAB PO SCH (05:23)
[2018-05-10 05:59] LABS: Absolute Lymphocytes (CBC) 1.7 K/uL (0.7-4.9); Absolute Monocytes 1.1 K/uL (0.1-1.3); Absolute Neutrophil 9.1 K/uL (1.8-8.0); Basophils % 0.3 % (0-1.3); Hematocrit 40.1 % (36.0-45.0); Monocytes % 9.5 % (3.3-12.3); Potassium 3.4 mmol/L (3.5-5.1); RBC Red Blood Cell Count 4.31 M/uL (3.86-4.86)
[2018-05-10] MEDS: LIDOCAINE 5% PATCH TOP SCH (09:00)
[2018-05-10] MEDS ORDERED: predniSONE 20 MG TAB PO SCH (09:00)
[2018-05-10] MEDS: GABAPENTIN 100 MG CAP PO SCH ×2 (10:04→13:49)
[2018-05-10] MEDS: SPIRONOLACTONE 25 MG TABLET PO SCH (10:04)
[2018-05-10] MEDS: LOSARTAN POTASSIUM 50 MG TABLET PO SCH (10:04)
[2018-05-10] MEDS: METHOCARBAMOL 750 MG TAB PO SCH ×2 (10:05→13:50)
[2018-05-10] MEDS: BUMETANIDE 1 MG/4 ML VIAL IV SCH (10:06)
[2018-05-10] MEDS: APIXABAN 5 MG TABLET PO SCH (10:06)
--- NOTE | 2018-05-10 12:53 | P.DS ---
Admission Date: 05/02/18 Discharge Date: 05/10/18 Disposition: ROUTINE DISCHARGE Reason for Admission: Shortness of breath - Problems (1) Large pleural effusion Current Visit: Yes Status: Chronic (2) Diastolic CHF Current Visit: Yes Status: Acute Qualifiers: Heart failure chronicity: acute Qualified Code(s): I50.31 - Acute diastolic (congestive) heart failure (3) New onset a-fib Current Visit: Yes Status: Acute (4) Neck pain Current Visit: Yes Status: Chronic (5) Thrombocythemia Current Visit: Yes Status: Acute (6) Asthma Current Visit: Yes Status: Acute Qualifiers: Asthma severity: moderate Brief History of Present Illness: SAMARA HAS DYSPNEA WORSE OVER A FEW DAYS. SHE IS WORSE AND SO SHE CAME TO ER. SHE HAS NO CHEST PAIN. SHE HAS NO FEVER OR COUGH. MS HARRELL HAS KEEGAN EFFUSION, FROM DIASTOLIC DYSFUNCTION. SHE NEEDED LASIX IV BUT SHE DID NOT LIKE IT AND REFUSED SHE HAS HAD IRRITABLE BOWEL SYNDROME FROM IT. SHE LIKES BUMEX WELL. SHE RESPONDED WELL TO BUMEX IV , LATER SHE HAD RAPID A FIB, FOR WHICH I GAVE HER SOALOL AND ELIQUIS , SHE TOLERATED WELL AND WAS SEEN BY DR WATERMAN. LATER SHE HAD COUGH AND ASTHMA LIKE SS AND RESPONDED WELL TO NEBULIZER BUT NEEDED FEW DAYS OF STEROIDS. SHE ALSO GRADUALLY STARTED TO GO UP FROM 500K TO 1 MIL OF PLATELTES. HER ONE NUMBER DROP FROM 1 M TO 500K WAS WRONG PER DR HERNANDEZ THE TUBE CHANGED. HER REPEAT NUMBER ON THE DAY WAS 884K. SHE IS NOW DOWN TO 700K. THIS IS A ACUTE PHASE REACTANT FROM [facility] PER DR GAO. SHE IS VERY ANXIOUS LADY AND DID NOT TOLERATE SSRIS BUT TOLERATED ELAVIL WELL LIKEBEFORE AND LIKES IT. FU INOFFICE IN 1 WEEK. Vital Signs/Physical Exam: Temp Pulse Resp BP Pulse Ox 97.6 F 53 18 125/60 94 05/10/18 08:00 05/10/18 10:06 05/10/18 08:00 05/10/18 10:06 05/10/18 08:00 Laboratory Data at Discharge: WBC 11.9 K/uL (4.3-10.9) H D 05/10/18 05:20 Hgb 13.6 g/dL (12.0-15.0) 05/10/18 05:20 Hct 40.1 % (36.0-45.0) 05/10/18 05:20 Plt Count 761 K/uL (152-406) H 05/10/18 05:20 PT 13.7 SECONDS (9.5-12.5) H 05/02/18 08:15 INR 1.17 05/02/18 08:15 Sodium 136 mmol/L (136-145) 05/10/18 05:20 Potassium 3.4 mmol/L (3.5-5.1) L 05/10/18 05:20 BUN 26 mg/dL (7-18) H 05/10/18 05:20 Creatinine 0.65 mg/dL (0.55-1.3) 05/10/18 05:20 Glucose 100 mg/dL (74-106) 05/10/18 05:20 Magnesium 2.3 mg/dL (1.8-2.4) 05/09/18 06:00 Total Bilirubin 0.4 mg/dL (0.2-1.0) 05/07/18 12:18 AST 20 U/L (15-37) 05/07/18 12:18 ALT 27 U/L (12-78) 05/07/18 12:18 Alkaline Phosphatase 89 U/L (45-117) 05/07/18 12:18 Triglycerides 77 mg/dL (<150) 05/03/18 05:22 Cholesterol 206 mg/dL (<200) H 05/03/18 05:22 HDL Cholesterol 67 mg/dL (40-60) H 05/03/18 05:22 Cholesterol/HDL Ratio 3.07 05/03/18 05:22 Home Medications: Albuterol Sulfate [Proair Hfa] 2 inhaler PO QID 05/02/18 Glycopyrrolate/Formoterol Fum [Bevespi Aerosphere Inhaler] 1 inhaler PO QID 01/10 Losartan Potassium 100 mg PO DAILY 05/02/18 Methocarbamol 750 mg PO TID 05/02/18 ALPRAZolam [Xanax*] 0.25 mg PO TID PRN #10 tab 05/10/18 Amitriptyline [Elavil*] 10 mg PO BEDTIME #90 tab 05/10/18 Apixaban [Eliquis] 5 mg PO BID #60 tablet 05/10/18 Bumetanide [Bumex] 2 mg PO DAILY #90 tab 05/10/18 Gabapentin [Neurontin*] 100 mg PO TID #90 cap 05/10/18 Sotalol HCl [Betapace*] 80 mg PO BID 6AM 6PM #180 tab 05/10/18 Spironolactone 50 mg PO DAILY #90 tablet 05/10/18 Spironolactone [Aldactone*] 25 mg PO BID #0 tab 05/10/18 predniSONE [Prednisone*] 20 mg PO DAILY #30 tab 05/10/18 New Medications: ALPRAZolam [Xanax*] 0.25 mg PO TID PRN #10 tab PRN Reason: Anxiety Amitriptyline [Elavil*] 10 mg PO BEDTIME #90 tab Apixaban [Eliquis] 5 mg PO BID #60 tablet Bumetanide [Bumex] 2 mg PO DAILY #90 tab Gabapentin [Neurontin*] 100 mg PO TID #90 cap predniSONE [Prednisone*] 20 mg PO DAILY #30 tab Sotalol HCl [Betapace*] 80 mg PO BID 6AM 6PM #180 tab Spironolactone 50 mg PO DAILY #90 tablet Followup: Migeulito Ernandez MD [Primary Care Provider] - Pant Yesenia Augustine MD [ACTIVE - CAN ADMIT] - (Follow up in 2 weeks after discharge from hospital.)
== END 2018-05-10 16:16 | disposition home or self-care (01) | DRG 186 ==
LOC: ER 19:20 → ERHOLD 05-02 00:36 → 2ND 05-02 01:09 → 3RD-ICU 05-04 22:20 → 2ND 05-05 11:45
PROVIDERS: ADMIT Internal Medicine; ATTEND Internal Medicine
DX: J90 Pleural effusion, not elsewhere classified (principal); I50.33 Acute on chronic diastolic (congestive) heart failure; I11.0 Hypertensive heart disease with heart failure; I48.0 Paroxysmal atrial fibrillation; D47.3 Essential (hemorrhagic) thrombocythemia; M54.2 Cervicalgia; J45.40 Moderate persistent asthma, uncomplicated
CPT/HCPCS: 36415; 71045; 71046; 71260; 76700; 80048; 80061; 80074; 80076; 81003; 82570; 82728; 82805; 82962; 83540; 83735; 83880; 84156; 84466; 84484; 85025; 85044; 85049; 85610; 85652; 86140; 93005; 93306; 94640; 94760; 96365; 96368; 96375; 97161; 99285; J0456; J0696; J1940; J2920; J2930; J7512; Q9967

== ENCOUNTER 2018-07-29 11:14 | Inpatient (IN) | payer OTHER ==
--- OUTSIDE RECORDS SUMMARY | 2018-07-29 11:28 | XMS REPORT ---
:1940 [facility] Address [address] [place]. [address] [place] [id number] Care Team Providers Name Role Phone Unavailable [...]
[2018-07-29 12:23] LABS: Urine Appearance CLEAR; Urine Bilirubin NEGATIVE (NEG); Urine Blood NEGATIVE (NEG); Urine Color YELLOW; Urine Glucose NEGATIVE (NEG); Urine Protein NEGATIVE (NEG); Urine Specific Gravity <=1.005 (1.005-1.030); Urine Urobilinogen 0.2 mg/dL (0.2-1.0)
[2018-07-29 12:52] LABS: Urine Amorphous Sediment 1+ /HPF (NONE SEEN); Urine Bacteria <20 /HPF (<20); Urine Culture Reflex Order NOT NEEDED; Urine RBC NONE SEEN /HPF (NONE SEEN)
[2018-07-29] MEDS ORDERED: ALBUTEROL 2.5 MG/3 ML NEB SOL NEB PRN (12:53)
[2018-07-29] MEDS ORDERED: LOPERAMIDE HCL 2 MG CAPSULE PO PRN (12:55)
[2018-07-29] MEDS ORDERED: ONDANSETRON 4 MG (ODT) TAB PO PRN (12:55)
[2018-07-29] MEDS ORDERED: ACETAMINOPHEN 325 MG TABLET PO PRN (12:55)
[2018-07-29] MEDS ORDERED: DIPHENHYDRAMINE 25 MG TAB/CAP PO PRN (12:55)
[2018-07-29] MEDS ORDERED: POLYETHYL GLY 3350 17 GM/DOSE PO PRN (12:56)
[2018-07-29] MEDS ORDERED: ONDANSETRON 4 MG/2 ML VIAL IV PRN (12:56)
--- NOTE | 2018-07-29 13:14 | RAD REPORT ---
EXAM DESCRIPTION: CT - Chest For Pe Angio - 07/29/2018 1:03 pm CLINICAL HISTORY: Chest pain. HIGH D DIMER COMPARISON: Thorax W/ Con dated 05/01/2018 TECHNIQUE: CT angiogram of the pulmonary arteries was performed with MIP. All CT scans are performed using dose optimization technique as appropriate and may include automated exposure control or mA/KV adjustment according to patient size. FINDINGS: No evidence of pulmonary thromboembolism. No acute aortic finding demonstrated. Subsegmental atelectasis is present in both lung bases. Moderate to large bilateral pleural effusions, slightly larger on the right. Degenerative changes in the spine. IMPRESSION: No evidence of pulmonary thromboembolism. Moderate to large bilateral pleural effusions, slightly larger on the right.
[2018-07-29] MEDS: LEVALBUTEROL 1.25 MG/3 ML NEB IH SCH ×3 (14:00→20:05)
[2018-07-29] MEDS: IPRATROPIUM BROM 0.5MG/2.5ML IH SCH ×2 (14:00→20:05)
--- NOTE | 2018-07-29 14:36 | P.HP ---
Certification for Inpatient Patient admitted to: Inpatient With expected LOS: >2 Midnights Practitioner: I am a practitioner with admitting privileges, knowledge of patient current condition, hospital course, and medical plan of care. Services: Services provided to patient in accordance with Admission requirements found in Title 42 Section 412.3 of the Code of Federal Regulations Patient History Date of Service: 07/29/18 Reason for admission: DYSPNEA History of Present Illness: MRS. HARRELL CAME BACK WITH DYSPNEA YESTERDAY. I ORDERED CXR, BNP, D DIMER. BNP IS NORMAL. D DIMER IS VERY HIGH BUT CT ANGIO IS NEGATIVE FOR PE OR MASS. SHE IS QUIE SYMPTOMATIC AT REST, HAS ORTHOPNEA. SHE IS STILL ON BUMEX ORALLY AND SPIRONOLACTONE. SHE HAS NOT CHANGED HER DIET. SHE STAYS VERY ANXIOUS AND CRIES WITH ANY CHANGES IN HER LIFE. SHE CRIED THEY HAD HARD TIME GETTING IV FOR CT ANGIOGRAM. SHE HAS NO CHEST PAIN. Allergies tioconazole [From [employer] [facility] (tioconazole)] Allergy (Verified 05/02/18 02:22) Hives/Rash Home Medications: Methocarbamol 750 mg PO TIDP PRN 05/02/18 Amitriptyline [Elavil*] 10 mg PO BEDTIME #90 tab 05/10/18 Apixaban [Eliquis] 5 mg PO BID #60 tablet 05/10/18 Gabapentin [Neurontin*] 100 mg PO TID #90 cap 05/10/18 Sotalol HCl [Betapace*] 80 mg PO BID 6AM 6PM #180 tab 05/10/18 Bumetanide 2 mg PO DAILY 07/29/18 Levalbuterol HCl [Xopenex] 0.63 mg IH TID 07/29/18 Spironolactone [Aldactone*] 25 mg PO DAILY 07/29/18 - Past Medical/Surgical History Has patient received pneumonia vaccine in the past: Yes Diabetic: No -: A.FIB -: HTN -: BACK PAIN -: OVARIAN CYST REMOVAL -: KNEE SX -: CHOLECYSTECTOMY - Social History Alcohol use: No CD- Drugs: No Caffeine use: Yes Review of Systems 10-point ROS is otherwise unremarkable General: Weakness Respiratory: Shortness of Breath, SOB with Excertion, As per HPI Physical Examination - Vital Signs Temperature: 97.4 F Blood Pressure: 120/71 Pulse: 67 Respirations: 16 Pulse Ox (%): 94 - Physical Exam General: Alert, Moderate distress, Obese HEENT: Atraumatic, PERRLA, Mucous membr. moist/pink, EOMI, Sclerae nonicteric Neck: Supple, 2+ carotid pulse no bruit, No LAD, Without JVD or thyroid abnormality Respiratory: Diminished Cardiovascular: Regular rate/rhythm, Normal S1 S2 Gastrointestinal: Normal bowel sounds, No tenderness Musculoskeletal: No tenderness Integumentary: No rashes Neurological: Normal gait, Normal speech, Normal strength at 5/5 x4 extr, Normal tone, Normal affect Lymphatics: No axilla or inguinal lymphadenopathy Assessment and Plan - Problems (Diagnosis) (1) Bilateral pleural effusion Current Visit: Yes Status: Acute Plan: SHE HAS NO PE, NO TUMORS, NO FLUID INSIDE LUNGS BUT HAS KEEGAN LARGE PLEURAL EFFUSION. SHE HAS NO RENAL FAILURE, NO SIGNS OF LOW ALBUMIN. SHE DOES HAVE DIASTOLIC DYSFUNCTION ON THE ECHO DONE IN APRIL. SHE HAS BEEN TO DR. WATERMAN AND DR. JOHANSEN BOTH. RECENTLY DR. JOHANSEN REDUCED SPIRONOLACTONE TO 25 MG DAILY BUT NOT MUCH. I ASKED DR. JOHANSEN TO SEE IF WE HAVE NONCARDIAC REASON FOR EFFUSIONS HER BNP STAYS NORMAL. (2) COPD (chronic obstructive pulmonary disease) Current Visit: Yes Status: Chronic Plan: SHE SAYS XOPENEX HELPS I WILL ADD STEROIDS FOR A DAY OR SO. Qualifiers: COPD type: COPD with acute exacerbation Qualified Code(s): J44.1 - Chronic obstructive pulmonary disease with (acute) exacerbation (3) Diastolic CHF Current Visit: No Status: Chronic Plan: ABOVE. Qualifiers: Heart failure chronicity: acute Qualified Code(s): I50.31 - Acute diastolic (congestive) heart failure (4) Anxiety Current Visit: Yes Status: Chronic Plan: SHE TAKES XANAX. I WILL WORK ON THIS MORE. - Advance Directives Does patient have a Living Will: Yes Does patient have a Durable POA for Healthcare: Yes
[2018-07-29] MEDS ORDERED: METHOCARBAMOL 750 MG TAB PO PRN (14:51)
--- NOTE | 2018-07-29 15:58 | RAD REPORT ---
EXAM DESCRIPTION: USExtrem Venous W Compress Bil07/29/2018 3:17 pm CLINICAL HISTORY: leg swelling COMPARISON: 2018 FINDINGS: The common femoral, superficial femoral, popliteal and posterior tibial veins bilaterally are compressible and demonstrate augmentation. Doppler demonstrates good flow. IMPRESSION: No evidence of deep venous thrombosis involving either lower extremity.
--- NOTE | 2018-07-29 16:03 | RAD REPORT ---
EXAM DESCRIPTION: US - Abdomen Exam Complete - 07/29/2018 3:17 pm CLINICAL HISTORY: Abdominal pain COMPARISON: 2018 FINDINGS: The liver has a normal echotexture. 11 millimeter cyst Cholecystectomy. Prominence of the biliary tree unchanged The pancreas appears normal in size and echotexture The right kidney measures 8 centimeters with a normal echotexture. The left kidney measures 11 centimeters with a normal echotexture. The spleen measures 8 centimeters. The abdominal aorta and inferior vena cava appear unremarkable IMPRESSION: No acute abnormality displayed
[2018-07-29] MEDS: METHYLPREDNISOLONE 40 MG INJ IV SCH (17:39)
[2018-07-29] MEDS: SOTALOL HCL 80 MG PO SCH (17:39)
[2018-07-29] MEDS ORDERED: SOTALOL HCL 80 MG TAB PO SCH (18:00)
[2018-07-29] MEDS: GABAPENTIN 100 MG CAP PO SCH (21:00)
[2018-07-29] MEDS: AMITRIPTYLINE 10 MG PO SCH (21:00)
[2018-07-29] MEDS ORDERED: APIXABAN 5 MG TABLET PO SCH (21:00)
[2018-07-29] MEDS ORDERED: AMITRIPTYLINE 10 MG TAB PO SCH (21:00)
[2018-07-29] MEDS ORDERED: GABAPENTIN 100 MG CAP PO SCH (21:00)
[2018-07-29] MEDS: APIXABAN 5 MG PO SCH (21:00)
[2018-07-29] MEDS: BUMETANIDE 1 MG/4 ML VIAL IV SCH (21:20)
[2018-07-29] MEDS: METHOCARBAMOL 750 MG PO PRN (21:21)
[2018-07-30] MEDS: METHYLPREDNISOLONE 40 MG INJ IV SCH ×4 (00:10→17:00)
[2018-07-30] MEDS: LEVALBUTEROL 1.25 MG/3 ML NEB IH SCH ×4 (03:25→20:10)
[2018-07-30] MEDS: IPRATROPIUM BROM 0.5MG/2.5ML IH SCH ×4 (03:25→20:10)
[2018-07-30] MEDS: SOTALOL HCL 80 MG PO SCH ×2 (05:25→17:00)
[2018-07-30 05:39] LABS: Absolute Lymphocytes (CBC) 1.1 K/uL (0.7-4.9); Basophils % 0.8 % (0-1.3); Eosinophils % 0.1 % (0-4.4); Hematocrit 38.9 % (36.0-45.0); Lymphocytes % 15.6 % (15.3-44.8); MPV 8.1 fL (7.6-11.3); Monocytes % 0.5 % (3.3-12.3); RBC Red Blood Cell Count 4.18 M/uL (3.86-4.86)
[2018-07-30 05:44] LABS: Magnesium 2.3 mg/dL (1.8-2.4); Potassium 3.8 mmol/L (3.5-5.1)
[2018-07-30] MEDS: APIXABAN 5 MG PO SCH ×2 (08:45→21:00)
[2018-07-30] MEDS: METHOCARBAMOL 750 MG PO PRN ×3 (08:45→21:42)
[2018-07-30] MEDS: GABAPENTIN 100 MG CAP PO SCH ×3 (08:46→21:00)
[2018-07-30] MEDS: SPIRONOLACTONE 50 MG PO SCH (08:46)
[2018-07-30] MEDS: BUMETANIDE 1 MG/4 ML VIAL IV SCH ×2 (08:49→21:39)
[2018-07-30] MEDS: SPIRONOLACTONE 25 MG TABLET PO SCH (09:00)
[2018-07-30] MEDS ORDERED: SPIRONOLACTONE 25 MG TABLET PO SCH (09:00)
--- NOTE | 2018-07-30 09:08 | P.CNS ---
Date of Consult: 07/30/18 Chief Complaint: DYSPNEA History of Present Illness: Patient is a pleasant 78 years of age was admitted in April for a presumed diastolic dysfunction was initially better then became progressively worse in the last 2 weeks complaining of shortness of breath on very mild exertion orthopnea patient did improve at the time of last discharge sure how her prednisone was stopped she was changed to pro air in a p.r.n. basis denies any fever chills lower extremity edema no cough found to have bilateral pleural effusions compliant with the diuretics history of AFib feeling better since admission Allergies tioconazole [From [employer] 1 (tioconazole)] Allergy (Verified 05/02/18 02:22) Hives/Rash Home Medications: Methocarbamol 750 mg PO TIDP PRN 05/02/18 Amitriptyline [Elavil*] 10 mg PO BEDTIME #90 tab 05/10/18 Apixaban [Eliquis] 5 mg PO BID #60 tablet 05/10/18 Gabapentin [Neurontin*] 100 mg PO TID #90 cap 05/10/18 Sotalol HCl [Betapace*] 80 mg PO BID 6AM 6PM #180 tab 05/10/18 Bumetanide 2 mg PO DAILY 07/29/18 Levalbuterol HCl [Xopenex] 0.63 mg IH TID 07/29/18 Spironolactone [Aldactone*] 25 mg PO DAILY 07/29/18 - Past Medical/Surgical History Diabetic: No -: A.FIB -: HTN -: BACK PAIN -: OSTEOPOROSIS -: DEGENERATIVE DISC DISEASE -: OSTEOARTHRITIS -: OVARIAN CYST REMOVAL -: KNEE SX -: CHOLECYSTECTOMY - Family History Father Medical History: Heart disease, Lung disease Mother Medical History: Stroke - Social History Alcohol use: No CD- Drugs: No Caffeine use: Yes Place of Residence: Home Review of Systems 10-point ROS is otherwise unremarkable Physical Examination Temp Pulse Resp BP Pulse Ox 97.8 F 59 16 111/64 93 07/30/18 08:00 07/30/18 08:49 07/30/18 08:00 07/30/18 08:49 07/30/18 08:00 General: Alert, In no apparent distress, Oriented x3 Respiratory: Clear to auscultation bilaterally Cardiovascular: No edema, Regular rate/rhythm Gastrointestinal: Normal bowel sounds, Soft and benign Laboratory Data (last 24 hrs) 07/30/18 05:13: Sodium 137, Potassium 3.8, BUN 20 H, Creatinine 0.77, Glucose 130 H, Magnesium 2.3 07/30/18 05:13: WBC 6.9 D, Hgb 13.5, Hct 38.9, Plt Count 412 H - Problems (1) Diastolic heart failure Current Visit: No Status: Acute Plan: Patient is 78 years of age admitted with shortness of breath on mild exertion got worse the last couple of weeks patient was here in April and did well complains of some wheezing in the upper chest labs reviews to chemistries unremarkable patient has bilateral pleural effusions no evidence of thromboembolism BNP is normal as patient did better on steroids she may have underlying obstructive airways disease I recommended trial off long-acting bronchodilators and steroids for now PA lateral chest x-ray there does not appear to be a significant effusion on the soaker meat films patient does have oxygen at home that she uses at night only Qualifiers: Heart failure chronicity: acute on chronic Qualified Code(s): I50.33 - Acute on chronic diastolic (congestive) heart failure
--- NOTE | 2018-07-30 09:53 | RAD REPORT ---
EXAM DESCRIPTION: Cornell Cope And Lat (2 Views)07/30/2018 9:33 am CLINICAL HISTORY: Shortness breath COMPARISON: July 29, 2018 FINDINGS: Pleural effusions have decreased in size. Bibasilar atelectasis. Upper lobes are clear. Heart is mildly enlarged IMPRESSION: The bilateral pleural effusions have decreased in size and are probably small to modera te
[2018-07-30 15:05] LABS: Arterial Blood Carboxyhemoglob 1.3 % (0-1.5); Blood Gas Oxyhemoglobin 90.8 % (94-97); Blood O2 Saturation 92.5 % (92-98.5)
--- NOTE | 2018-07-30 16:01 | CON ---
Date of Consultation: 07/30/[address] Ernandez's service on 07/29/2018. I saw the patient on 07/30/2018. Reason For Consultation: Shortness of breath. History Of Present Illness: Ms. Ferreira is a 78-year-old woman with history of COPD, neuropathy, hy pertension, diastolic dysfunction, and paroxysmal atrial fibrillation. She was here in April of 2018 and had an echocardiogram that showed normal ejection fraction with decreased left ventricular compl iance. She had atrial fibrillation then. That was paroxysmal. She was sent to Dr. Stephania Mariano for possible ablation, but the patient decided not to have that done at that time. She was placed on sot alol and Eliquis. When she was here in April 2018, she did have bilateral pleural effusions. She wa s diuresed and sent home. She comes back with shortness of breath; worsening pleural effusion, moder [id number], worse on the right than the left. She had a venous Doppler that was negative. She had elevated D-dimer with a negative CT angiogram. Her blood work was otherwise unremarkable. Abdomina l sonogram was also done, which was normal. Past Medical History: As stated above. Allergies: INCLUDE ITRACONAZOLE. Review of Systems: Negative. Social History: Negative. Family History: Negative. Medications: At home include sotalol, Bumex, Aldactone, Eliquis, Xopenex, and Neurontin. Physical Examination: General: She was in mild respiratory distress. Vital Signs: Stable. She was afebrile. HEENT: Negative. Neck: Supple with no bruit. Chest: Clear to auscultation and percussion in the upper lobes. The lower lobe showed significantly decreased breath sounds with positive percussion. No wheezing. No rales. Cardiac: Revealed a regular rhythm and rate. No murmurs, gallops, or rubs. Abdomen: Benign. Extremities: Revealed no clubbing, cyanosis, or edema. Skin: Dry and intact. Neurological: She was nonfocal. Diagnostic Data: As stated earlier. Impression And Plan: 1.Bilateral pleural effusions that I believe at this point is of unknown etiology. I do not think t his is all secondary to congestive heart failure. Thoracentesis may be considered. Pulmonary consul tation is pending. I agree with her present regimen, otherwise. 2.Atrial fibrillation that has resolved on sotalol and Eliquis. 3.Possible chronic obstructive pulmonary disease. 4.Neuropathy. 5.Hypertension. For now, I do not have any further recommendation. I do not think we need to repeat any cardiac stud ies. We will see what Dr. Mckee says regarding the pleural effusions. If she is going to have a thoracentesis, we will need to hold her Eliquis for at least 1 day. I will discuss the case further with Dr. Ernandez and Dr. Mckee. TONIA/ROQUE Voice ID: [id number] Report ID: [id number]
[2018-07-30] MEDS: ACETAMINOPHEN 500 MG TABLET PO PRN (18:32)
[2018-07-30] MEDS: AMITRIPTYLINE 10 MG PO SCH (21:00)
[2018-07-31] MEDS: METHYLPREDNISOLONE 40 MG INJ IV SCH ×2 (00:42→05:44)
[2018-07-31] MEDS: LEVALBUTEROL 1.25 MG/3 ML NEB IH SCH ×4 (01:50→20:05)
[2018-07-31] MEDS: IPRATROPIUM BROM 0.5MG/2.5ML IH SCH ×4 (01:50→20:05)
[2018-07-31] MEDS: ACETAMINOPHEN 500 MG TABLET PO PRN (04:26)
[2018-07-31 05:35] LABS: Basophils % 0.1 % (0-1.3); Hematocrit 37.6 % (36.0-45.0); Lymphocytes % 11.4 % (15.3-44.8); MPV 7.7 fL (7.6-11.3); Monocytes % 2.9 % (3.3-12.3); RBC Red Blood Cell Count 3.96 M/uL (3.86-4.86)
[2018-07-31] MEDS: SOTALOL HCL 80 MG PO SCH ×2 (05:44→17:02)
[2018-07-31 05:48] LABS: Magnesium 2.2 mg/dL (1.8-2.4); Potassium 3.5 mmol/L (3.5-5.1)
[2018-07-31 08:27] LABS: Blood Morphology Comment NOT SEEN (NOT SEEN)
[2018-07-31 08:28] LABS: Platelet Estimate ADEQ
[2018-07-31] MEDS: BUMETANIDE 1 MG/4 ML VIAL IV SCH ×2 (08:42→21:07)
[2018-07-31] MEDS: SPIRONOLACTONE 50 MG PO SCH (08:44)
[2018-07-31] MEDS: APIXABAN 5 MG PO SCH ×2 (08:45→21:00)
[2018-07-31] MEDS: GABAPENTIN 100 MG CAP PO SCH ×3 (08:45→21:00)
[2018-07-31] MEDS: SPIRONOLACTONE 25 MG TABLET PO SCH ×3 (08:46→21:07)
--- NOTE | 2018-07-31 09:19 | P.PN ---
Subjective Date of Service: 07/30/18 Chief Complaint: IMPROVED SOME. Subjective: Improving MS.. HARRELL HAS IMPROVED BUT STILL HAS LABORED BREATHING WHEN SHE TALKS. SHE HAS LOT OF QUESTIONS I ANSWERED ABOUT CHF, DIASTOLIC DYSFUNCTION. Review of Systems 10-point ROS is otherwise unremarkable General: Weakness Physical Examination - Vital Signs Temperature: 97.8 F Blood Pressure: 140/91 Pulse: 64 Respirations: 16 Pulse Ox (%): 92 - Physical Exam General: Alert, Mild distress HEENT: Atraumatic, PERRLA, EOMI Neck: Supple, JVD not distended Respiratory: Clear to auscultation bilaterally, Normal air movement Cardiovascular: Regular rate/rhythm, Normal S1 S2 Gastrointestinal: Normal bowel sounds, No tenderness Musculoskeletal: No tenderness Integumentary: No rashes Neurological: Normal speech, Normal tone, Normal affect Lymphatics: No axilla or inguinal lymphadenopathy - Studies Laboratory Data (last 24 hrs) 07/31/18 05:02: Sodium 137, Potassium 3.5, BUN 23 H, Creatinine 0.80, Glucose 132 H, Magnesium 2.2 07/31/18 05:02: WBC 9.1 D, Hgb 12.8, Hct 37.6, Plt Count 409 H Medications List Reviewed: Yes Assessment And Plan - Current Problems (Diagnosis) (1) Bilateral pleural effusion Current Visit: Yes Status: Acute Plan: SHE HAS NO PE, NO TUMORS, NO FLUID INSIDE LUNGS BUT HAS KEEGAN LARGE PLEURAL EFFUSION. SHE HAS NO RENAL FAILURE, NO SIGNS OF LOW ALBUMIN. SHE DOES HAVE DIASTOLIC DYSFUNCTION ON THE ECHO DONE IN APRIL. SHE HAS BEEN TO DR. WATERMAN AND DR. JOHANSEN BOTH. RECENTLY DR. JOHANSEN REDUCED SPIRONOLACTONE TO 25 MG DAILY BUT NOT MUCH. I ASKED DR. JOHANSEN TO SEE IF WE HAVE NONCARDIAC REASON FOR EFFUSIONS HER BNP STAYS NORMAL. CHEST X RAY SHOWS IMPROVEMENT. SHE MAY HAVE BIFACTORIAL REASON FOR EFFUSION. DIASTOLIC HEART FAILURE WITH NORMAL BNP SEEMS LESS LIKELY AND SO DR OGDEN IS NOT IMPRESSED WITH THAT ONLY BEING A REASON FOR EFFUSIONS. I AGREE. I HAVE ASKED FOR SECONDARY CAUSES. WE MAY NEED EFFUSION TAP BUTDR. JOHANSEN IS NOT IMPRESSED WITH ANY OTHER ETIOLOGY FROM PULMONARY SIDE. (2) COPD (chronic obstructive pulmonary disease) Current Visit: Yes Status: Chronic Plan: SHE SAYS XOPENEX HELPS I WILL ADD STEROIDS FOR A DAY OR SO. Qualifiers: COPD type: COPD with acute exacerbation Qualified Code(s): J44.1 - Chronic obstructive pulmonary disease with (acute) exacerbation (3) Diastolic CHF Current Visit: No Status: Chronic Plan: ABOVE. Qualifiers: Heart failure chronicity: acute Qualified Code(s): I50.31 - Acute diastolic (congestive) heart failure (4) Anxiety Current Visit: Yes Status: Chronic Plan: SHE TAKES XANAX. I WILL WORK ON THIS MORE.
--- NOTE | 2018-07-31 11:11 | P.PN ---
Subjective Date of Service: 07/31/18 Chief Complaint: NOT MUCH DYSPNEA AT REST. Subjective: Improving MS.. HARRELL HAS IMPROVED BUT STILL HAS LABORED BREATHING WHEN SHE TALKS. SHE HAS LOT OF QUESTIONS I ANSWERED ABOUT CHF, DIASTOLIC DYSFUNCTION. SHE IS A LOT BETTER WITH DIURESIS. Review of Systems 10-point ROS is otherwise unremarkable General: Weakness Physical Examination - Vital Signs Temperature: 97.8 F Blood Pressure: 140/91 Pulse: 64 Respirations: 16 Pulse Ox (%): 92 - Physical Exam General: Alert, Mild distress, Obese HEENT: Atraumatic, PERRLA, EOMI Neck: Supple, JVD not distended Respiratory: Diminished Cardiovascular: Regular rate/rhythm, Normal S1 S2 Gastrointestinal: Normal bowel sounds, No tenderness Musculoskeletal: No tenderness Integumentary: No rashes Neurological: Normal speech, Normal tone, Normal affect Lymphatics: No axilla or inguinal lymphadenopathy - Studies Laboratory Data (last 24 hrs) 07/31/18 05:02: Sodium 137, Potassium 3.5, BUN 23 H, Creatinine 0.80, Glucose 132 H, Magnesium 2.2 07/31/18 05:02: WBC 9.1 D, Hgb 12.8, Hct 37.6, Plt Count 409 H Medications List Reviewed: Yes Assessment And Plan - Current Problems (Diagnosis) (1) Bilateral pleural effusion Current Visit: Yes Status: Acute Plan: SHE HAS NO PE, NO TUMORS, NO FLUID INSIDE LUNGS BUT HAS KEEGAN LARGE PLEURAL EFFUSION. SHE HAS NO RENAL FAILURE, NO SIGNS OF LOW ALBUMIN. SHE DOES HAVE DIASTOLIC DYSFUNCTION ON THE ECHO DONE IN APRIL. SHE HAS BEEN TO DR. WATERMAN AND DR. JOHANSEN BOTH. RECENTLY DR. JOHANSEN REDUCED SPIRONOLACTONE TO 25 MG DAILY BUT NOT MUCH. I ASKED DR. JOHANSEN TO SEE IF WE HAVE NONCARDIAC REASON FOR EFFUSIONS HER BNP STAYS NORMAL. CHEST X RAY SHOWS IMPROVEMENT. SHE MAY HAVE BIFACTORIAL REASON FOR EFFUSION. DIASTOLIC HEART FAILURE WITH NORMAL BNP SEEMS LESS LIKELY AND SO DR OGDEN IS NOT IMPRESSED WITH THAT ONLY BEING A REASON FOR EFFUSIONS. I AGREE. I HAVE ASKED FOR SECONDARY CAUSES. WE MAY NEED EFFUSION TAP BUTDR. JOHANSEN IS NOT IMPRESSED WITH ANY OTHER ETIOLOGY FROM PULMONARY SIDE. NO CLEAR PICTURE FOR CHF TO GIVE RISE TO EFFUSION. [employer] DRILLER DENY THIS TO BE A CAUSE. TEST IN [facility], BNP IS GOOD. CASE AGAINST- RESPONSE TO BUMEX IS GOOD. I WILL STILL ORDER THORACENTASIS WE ARE NOT CLEAR. ALSO ORDER CT ABDOMEN AND PELVIS TO RULE OUT HIDDEN CAUSES OF EFFUSION LIKE OCCULT MALIGNANCIES. (2) COPD (chronic obstructive pulmonary disease) Current Visit: Yes Status: Chronic Plan: SHE SAYS XOPENEX HELPS I WILL ADD STEROIDS FOR A DAY OR SO. Qualifiers: COPD type: COPD with acute exacerbation Qualified Code(s): J44.1 - Chronic obstructive pulmonary disease with (acute) exacerbation (3) Diastolic CHF Current Visit: No Status: Chronic Plan: ABOVE. Qualifiers: Heart failure chronicity: acute Qualified Code(s): I50.31 - Acute diastolic (congestive) heart failure (4) Anxiety Current Visit: Yes Status: Chronic Plan: SHE TAKES XANAX. I WILL WORK ON THIS MORE.
--- NOTE | 2018-07-31 11:23 | P.PN ---
Subjective Date of Service: 08/14/18 Chief Complaint: Shortness of breath Subjective: Improving (Patient is somewhat better still complains of dyspnea on exertion she has significant hypoxemia oxygen desaturation on exertion denies any fever chills) Review of Systems General: Weakness Respiratory: Shortness of Breath Physical Examination - Vital Signs Temperature: 97.8 F Blood Pressure: 140/91 Pulse: 64 Respirations: 16 Pulse Ox (%): 92 - Physical Exam General: Alert, In no apparent distress, Oriented x3 Respiratory: Clear to auscultation bilaterally, Diminished Cardiovascular: No edema, Regular rate/rhythm, Normal S1 S2 - Studies Laboratory Data (last 24 hrs) 07/31/18 05:02: Sodium 137, Potassium 3.5, BUN 23 H, Creatinine 0.80, Glucose 132 H, Magnesium 2.2 07/31/18 05:02: WBC 9.1 D, Hgb 12.8, Hct 37.6, Plt Count 409 H Medications List Reviewed: Yes Assessment & Plan - Problems (Diagnosis) (1) Diastolic heart failure Status: Acute Plan: I strongly suspect that this is diastolic heart failure in view of her bilateral pleural effusions although the pleural effusion has been worse recently particularly on the right side I have increased the spironolactone to 25 mg twice a day renal function is normal reduce dose of prednisone pleural effusions of fairly symmetrical on the CT scan I agree with the right-sided thoracentesis patient does have a history of sleep apnea although she denies any snoring excessive daytime somnolence as a history of noncompliance with CPAP machine that had to be returned pleural effusion on the right side has worsened in part may be due to reduce dose of spironolactone.R/o cancer Qualifiers: Heart failure chronicity: acute on chronic Qualified Code(s): I50.33 - Acute on chronic diastolic (congestive) heart failure
[2018-07-31] MEDS: METHOCARBAMOL 750 MG PO PRN ×2 (13:55→21:08)
--- NOTE | 2018-07-31 14:35 | PN ---
Date of Progress Note: 07/31/2018 Ms. Ferreira was admitted yesterday with bilateral pleural effusion, more on the right than the left. Diagnosis is still uncertain. Certainly could be related to chronic diastolic congestive heart staceyagustin lewis. She takes Bumex and spironolactone, was diuresed aggressively yesterday according to her, but her weight did not change. She does feel better and she feels stronger today. Had 2 episodes of wha t appeared to be atrial fibrillation that lasted few seconds. She is on Eliquis and sotalol for that . From my standpoint, she can certainly go home. I will leave the rest of the plan to Dr. Mckee and Dr. Ernandez regarding her pleural effusions. TONIA/ROQUE Voice ID: [id number] Report ID: [id number]
[2018-07-31] MEDS: AMITRIPTYLINE 10 MG PO SCH (21:00)
[2018-07-31] MEDS: predniSONE 20 MG TAB PO SCH (21:07)
[2018-08-01] MEDS: IPRATROPIUM BROM 0.5MG/2.5ML IH SCH ×4 (01:50→20:00)
[2018-08-01] MEDS: LEVALBUTEROL 1.25 MG/3 ML NEB IH SCH ×4 (01:50→20:00)
[2018-08-01] MEDS: SOTALOL HCL 80 MG PO SCH ×2 (05:53→17:26)
[2018-08-01 06:08] LABS: Absolute Lymphocytes (CBC) 1.1 K/uL (0.7-4.9); Basophils % 0.2 % (0-1.3); Hematocrit 39.3 % (36.0-45.0); Lymphocytes % 13.9 % (15.3-44.8); MPV 7.6 fL (7.6-11.3); Monocytes % 7.1 % (3.3-12.3); RBC Red Blood Cell Count 4.15 M/uL (3.86-4.86)
[2018-08-01 06:17] LABS: Magnesium 2.4 mg/dL (1.8-2.4); Potassium 3.4 mmol/L (3.5-5.1)
[2018-08-01 06:28] LABS: Protime INR 1.19
[2018-08-01] MEDS: predniSONE 20 MG TAB PO SCH ×2 (09:00→21:00)
[2018-08-01] MEDS: GABAPENTIN 100 MG CAP PO SCH ×3 (09:00→21:00)
[2018-08-01] MEDS: BUMETANIDE 1 MG/4 ML VIAL IV SCH ×2 (09:00→21:12)
[2018-08-01] MEDS: SPIRONOLACTONE 25 MG TABLET PO SCH ×2 (09:00→21:00)
[2018-08-01] MEDS: APIXABAN 5 MG PO SCH ×2 (09:00→21:00)
[2018-08-01] MEDS: SPIRONOLACTONE 50 MG PO SCH (09:00)
--- NOTE | 2018-08-01 11:00 | RAD REPORT ---
EXAM DESCRIPTION: US - Thoracentesis w/ US Guide - 08/01/2018 9:53 am CLINICAL HISTORY: Pleural effusion, diagnostic thoracentesis COMPARISON: Chest exam July 30, 2018 TECHNIQUE: Patient presents for diagnostic thoracentesis. The procedure, risks and alternatives were discussed with the patient in detail. After answering all questions both oral and written consent we re obtained. Time out procedure was performed. Patient had no contraindicated allergy. Patient has been off 2 doses of Eliquis prior to the procedur e. No was considered sufficient for diagnostic thoracentesis. Preliminary sonographic evaluation of the posterior lower right chest showed moderate pleural fluid a t the base. Access site was selected. The skin was prepped and draped in the usual sterile fashion. S kin and deeper tissues down to the pleura anesthetized with 1% lidocaine. Under direct sonographic vi sualization a 22 gauge needle was advanced into the pleural space and approximately 25 cc of pleural fluid removed. Needle was withdrawn and a bandage placed to the puncture site. Patient tolerated procedure well with no complications. Pleural fluid was delivered to the lab. Referring physician at previously ordered laboratory studies. The lab was also asked to confirm with the consulting coding machine operator for any additional studies that may be needed. IMPRESSION: Ultrasound-guided right-side diagnostic thoracentesis performed as detailed.
[2018-08-01 11:35] LABS: Body Fluid WBC 1483 /mm^3
[2018-08-01 12:10] LABS: Appearance SLT. TURBID (CLEAR); Body Fluid Source PLEURAL; Color of fluid Yellow (COLORLESS)
--- NOTE | 2018-08-01 14:02 | RAD REPORT ---
EXAM DESCRIPTION: CT - Abdomen Pelvis W Contrast - 08/01/2018 1:49 pm CLINICAL HISTORY: Abdominal pain, possible occult malignancy COMPARISON: CT imaging August 2016 TECHNIQUE: Biphasic, helical CT imaging of the abdomen and pelvis was performed following 100 ml non -ionic IV contrast. Oral contrast was given. All CT scans are performed using dose optimization technique as appropriate and may include automated exposure control or mA/KV adjustment according to patient size. FINDINGS: Moderately large bilateral pleural effusions are present with atelectasis of each lower lo be. No pneumothorax. No pericardial thickening or effusion. Heart size is normal. No thickening or n odularity of the pleura. Liver size is normal. No suspicious liver parenchymal lesions seen. The patient has several round to oval hypodense areas in the liver. These are homogeneous and show cyst characteristics. Size, number and imaging characteristics are stable back to August 2016. Spleen and pancreas show no suspicious find ings. Gallbladder is absent. Extrahepatic biliary tree is dilated but not outside of the normal range for a post cholecystectomy patient. Biliary tree size has not change from 2017. Symmetric renal function is seen with no hydronephrosis or suspicious renal mass. No pyelonephritis o r acute parenchymal process. No bladder abnormalities. No adrenal abnormalities. No dilated bowel loops or bowel wall thickening. No acute or suspicious GI process identifiable. No f ree air, free fluid or inflammatory stranding. No omental thickening. No mass or bulky lymphadenopat hy. A left inferior periumbilical hernia is present. Size is not substantially different from compari son. Small enhancing vessel is seen within the hernia. Calcified uterine fibroids are present. Suspicious uterine or ovarian mass is not identified. SPECIAL PROCEDURES TECH str uctures are not clearly different from 2017. Disc and bony degenerative changes are present including advanced degenerative change at the facet nato ints L5-S1. IMPRESSION: No evidence for occult malignancy. Above detailed CT abdomen and pelvis findings are not clearly different from the 2017 comparison. Moderately large bilateral pleural effusions with lower lobe atelectasis.
[2018-08-01] MEDS: ACETAMINOPHEN 500 MG TABLET PO PRN (16:42)
[2018-08-01] MEDS: AMITRIPTYLINE 10 MG PO SCH (21:00)
[2018-08-01] MEDS: METHOCARBAMOL 750 MG PO PRN (21:12)
--- NOTE | 2018-08-01 21:17 | P.PN ---
Subjective Date of Service: 08/01/18 Chief Complaint: Shortness of breath Subjective: Improving MS.. HARRELL HAS IMPROVED BUT STILL HAS LABORED BREATHING WHEN SHE TALKS. SHE HAS LOT OF QUESTIONS I ANSWERED ABOUT CHF, DIASTOLIC DYSFUNCTION. SHE IS A LOT BETTER WITH DIURESIS. SHE IS BREATHING A LOT BETTER. LOT LESS ANXIOUS ALSO. Review of Systems 10-point ROS is otherwise unremarkable General: Weakness, Malaise Physical Examination - Vital Signs Temperature: 98 F Blood Pressure: 110/57 Pulse: 61 Respirations: 18 Pulse Ox (%): 93 - Physical Exam General: Alert, Oriented x3, Mild distress HEENT: Atraumatic, PERRLA, EOMI Neck: Supple, JVD not distended Respiratory: Clear to auscultation bilaterally, Normal air movement Cardiovascular: Regular rate/rhythm, Normal S1 S2 Gastrointestinal: Normal bowel sounds, No tenderness Musculoskeletal: No tenderness Integumentary: No rashes Neurological: Normal speech, Normal tone, Normal affect Lymphatics: No axilla or inguinal lymphadenopathy - Studies Laboratory Data (last 24 hrs) 08/01/18 05:19: PT 14.0 H, INR 1.19 08/01/18 05:19: Sodium 138, Potassium 3.4 L, BUN 25 H, Creatinine 0.76, Glucose 105, Magnesium 2.4 08/01/18 05:19: WBC 8.2, Hgb 13.4, Hct 39.3, Plt Count 423 H Medications List Reviewed: Yes Assessment And Plan - Current Problems (Diagnosis) (1) Bilateral pleural effusion Current Visit: Yes Status: Acute Plan: SHE HAS NO PE, NO TUMORS, NO FLUID INSIDE LUNGS BUT HAS KEEGAN LARGE PLEURAL EFFUSION. SHE HAS NO RENAL FAILURE, NO SIGNS OF LOW ALBUMIN. SHE DOES HAVE DIASTOLIC DYSFUNCTION ON THE ECHO DONE IN APRIL. SHE HAS BEEN TO DR. WATERMAN AND DR. JOHANSEN BOTH. RECENTLY DR. JOHANSEN REDUCED SPIRONOLACTONE TO 25 MG DAILY BUT NOT MUCH. I ASKED DR. JOHANSEN TO SEE IF WE HAVE NONCARDIAC REASON FOR EFFUSIONS HER BNP STAYS NORMAL. CHEST X RAY SHOWS IMPROVEMENT. SHE MAY HAVE BIFACTORIAL REASON FOR EFFUSION. DIASTOLIC HEART FAILURE WITH NORMAL BNP SEEMS LESS LIKELY AND SO DR OGDEN IS NOT IMPRESSED WITH THAT ONLY BEING A REASON FOR EFFUSIONS. I AGREE. I HAVE ASKED FOR SECONDARY CAUSES. WE MAY NEED EFFUSION TAP BUTDR. JOHANSEN IS NOT IMPRESSED WITH ANY OTHER ETIOLOGY FROM PULMONARY SIDE. NO CLEAR PICTURE FOR CHF TO GIVE RISE TO EFFUSION. TWO WALKING DRAGLINE OILER DENY THIS TO BE A CAUSE. TEST IN FAVOR, BNP IS GOOD. CASE AGAINST- RESPONSE TO BUMEX IS GOOD. I WILL STILL ORDER THORACENTASIS WE ARE NOT CLEAR. ALSO ORDER CT ABDOMEN AND PELVIS TO RULE OUT HIDDEN CAUSES OF EFFUSION LIKE OCCULT MALIGNANCIES. SO FAR NO OTHER CAUSESS BUT DIASTOLIC DYSFUNCTION. HAS NEGATIVE CT ABDOMEN, NO TUMORS. PLEURAL TAP SHOWS TRANSUDATE THAT RULES OUT MANY CHRONIC ETIOLOGIES. (2) COPD (chronic obstructive pulmonary disease) Current Visit: Yes Status: Chronic Plan: SHE SAYS XOPENEX HELPS I WILL ADD STEROIDS FOR A DAY OR SO. Qualifiers: COPD type: COPD with acute exacerbation Qualified Code(s): J44.1 - Chronic obstructive pulmonary disease with (acute) exacerbation (3) Diastolic CHF Current Visit: No Status: Chronic Plan: ABOVE. Qualifiers: Heart failure chronicity: acute Qualified Code(s): I50.31 - Acute diastolic (congestive) heart failure (4) Anxiety Current Visit: Yes Status: Chronic Plan: SHE TAKES XANAX. I WILL WORK ON THIS MORE.
[2018-08-02] MEDS: LEVALBUTEROL 1.25 MG/3 ML NEB IH SCH (02:00)
[2018-08-02] MEDS: IPRATROPIUM BROM 0.5MG/2.5ML IH SCH (02:00)
[2018-08-02] MEDS: SOTALOL HCL 80 MG PO SCH (05:26)
[2018-08-02 06:19] LABS: Absolute Lymphocytes (CBC) 1.1 K/uL (0.7-4.9); Basophils % 0.7 % (0-1.3); Hematocrit 39.2 % (36.0-45.0); Lymphocytes % 20.2 % (15.3-44.8); MPV 7.3 fL (7.6-11.3); Monocytes % 7.3 % (3.3-12.3); RBC Red Blood Cell Count 4.15 M/uL (3.86-4.86)
[2018-08-02 06:39] LABS: Magnesium 2.4 mg/dL (1.8-2.4); Potassium 3.3 mmol/L (3.5-5.1)
[2018-08-02] MEDS: ACETAMINOPHEN 500 MG TABLET PO PRN (06:46)
[2018-08-02] MEDS: METHOCARBAMOL 750 MG PO PRN (06:48)
[2018-08-02] MEDS: GABAPENTIN 100 MG CAP PO SCH (06:49)
[2018-08-02] MEDS: APIXABAN 5 MG PO SCH (09:00)
[2018-08-02] MEDS: BUMETANIDE 1 MG/4 ML VIAL IV SCH (09:00)
[2018-08-02] MEDS: SPIRONOLACTONE 50 MG PO SCH (09:00)
[2018-08-02] MEDS: SPIRONOLACTONE 25 MG TABLET PO SCH (09:00)
[2018-08-02] MEDS ORDERED: POTASSIUM CL SA 10 MEQ TAB PO SCH (09:00)
[2018-08-02] MEDS: predniSONE 20 MG TAB PO SCH (09:03)
--- NOTE | 2018-08-02 17:57 | P.DS ---
Admission Date: 07/31/18 Discharge Date: 08/02/18 Disposition: ROUTINE DISCHARGE Discharge Condition: FAIR Reason for Admission: Shortness of breath - Problems (1) Bilateral pleural effusion Status: Acute (2) COPD (chronic obstructive pulmonary disease) Status: Chronic Qualifiers: COPD type: COPD with acute exacerbation Qualified Code(s): J44.1 - Chronic obstructive pulmonary disease with (acute) exacerbation (3) Diastolic CHF Status: Chronic Qualifiers: Heart failure chronicity: acute Qualified Code(s): I50.31 - Acute diastolic (congestive) heart failure (4) Anxiety Status: Chronic Brief History of Present Illness: MRS. HARRELL CAME BACK WITH DYSPNEA YESTERDAY. I ORDERED CXR, BNP, D DIMER. BNP IS NORMAL. D DIMER IS VERY HIGH BUT CT ANGIO IS NEGATIVE FOR PE OR MASS. SHE IS QUIE SYMPTOMATIC AT REST, HAS ORTHOPNEA. SHE IS STILL ON BUMEX ORALLY AND SPIRONOLACTONE. SHE HAS NOT CHANGED HER DIET. SHE STAYS VERY ANXIOUS AND CRIES WITH ANY CHANGES IN HER LIFE. SHE CRIED THEY HAD HARD TIME GETTING IV FOR CT ANGIOGRAM. SHE HAS NO CHEST PAIN. MS. HARRELL HAD DYSPNEA AGAIN. SHE HAS BILATERAL MODERATE PLEURAL EFFUSIONS. WE RULED OUT AL EXUDATVE CAUSES SHE HAS TAP DONE AND IT SHOWS TRANSUDATE. SHE ALSO HAS NO SIGNS OF CAUSES LIKE CIRRHOSIS, LOW ALBUMIN, RENAL FAILURE OR MYXDEMA. SHE HAS DIASTOLIC DYSFUNCTION ONLY CAUSE OF EFFUSIONS. SHE ALSO HAS COPD AND WILL RESUME NEBS. Vital Signs/Physical Exam: Temp Pulse Resp BP Pulse Ox 97.9 F 55 18 108/61 95 08/02/18 08:00 08/02/18 08:00 08/02/18 08:00 08/02/18 08:00 08/02/18 08:00 Laboratory Data at Discharge: WBC 5.6 K/uL (4.3-10.9) D 08/02/18 05:56 Hgb 13.5 g/dL (12.0-15.0) 08/02/18 05:56 Hct 39.2 % (36.0-45.0) 08/02/18 05:56 Plt Count 373 K/uL (152-406) 08/02/18 05:56 PT 14.0 SECONDS (9.5-12.5) H 08/01/18 05:19 INR 1.19 08/01/18 05:19 Sodium 137 mmol/L (136-145) 08/02/18 05:56 Potassium 3.3 mmol/L (3.5-5.1) L 08/02/18 05:56 BUN 19 mg/dL (7-18) H 08/02/18 05:56 Creatinine 0.67 mg/dL (0.55-1.3) 08/02/18 05:56 Glucose 112 mg/dL (74-106) H 08/02/18 05:56 Magnesium 2.4 mg/dL (1.8-2.4) 08/02/18 05:56 Home Medications: Methocarbamol 750 mg PO TIDP PRN 05/02/18 Amitriptyline [Elavil*] 10 mg PO BEDTIME #90 tab 05/10/18 Apixaban [Eliquis] 5 mg PO BID #60 tablet 05/10/18 Gabapentin [Neurontin*] 100 mg PO TID #90 cap 05/10/18 Sotalol HCl [Betapace*] 80 mg PO BID 6AM 6PM #180 tab 05/10/18 Bumetanide 2 mg PO DAILY 07/29/18 Levalbuterol HCl [Xopenex] 0.63 mg IH TID 07/29/18 Bumetanide [Bumex] 2 mg PO BID #60 tab 08/01/18 Ipratropium Neb [Atrovent*] 0.5 mg IH [id number] amp 08/01/18 Levalbuterol [Xopenex*] 1.25 mg IH [id number] vial 08/01/18 Spironolactone 50 mg PO DAILY #90 tablet 08/01/18 Spironolactone [Aldactone*] 25 mg PO BID tab 08/01/18 Ipratropium Neb [Atrovent Neb] 0.5 mg IH Q6H #1 amp 08/02/18 New Medications: Bumetanide [Bumex] 2 mg PO BID #60 tab Ipratropium Neb [Atrovent Neb] 0.5 mg IH Q6H #1 amp Spironolactone 50 mg PO DAILY #90 tablet Followup: Miguelito Ernandez MD [Primary Care Provider] -
[2018-08-03 10:28] LABS: Complement (CH50), Total >60 U/mL (31-60)
== END 2018-08-02 09:27 | disposition home or self-care (01) | DRG 292 ==
LOC: 2ND 11:25 → OBSVTOIN 07-31 14:07
PROVIDERS: ADMIT Internal Medicine; ATTEND Internal Medicine
PROC: 0W993ZZ Drainage of Right Pleural Cavity, Percutaneous Approach (ICD-10-PCS; principal; 2018-08-01)
DX: I11.0 Hypertensive heart disease with heart failure (principal); J90 Pleural effusion, not elsewhere classified; J44.1 Chronic obstructive pulmonary disease with (acute) exacerbation; I50.33 Acute on chronic diastolic (congestive) heart failure; I48.0 Paroxysmal atrial fibrillation; F41.9 Anxiety disorder, unspecified; G62.9 Polyneuropathy, unspecified; E66.9 Obesity, unspecified; G47.30 Sleep apnea, unspecified; M81.0 Age-related osteoporosis without current pathological fracture; Z68.26 Body mass index [BMI] 26.0-26.9, adult; Z79.01 Long term (current) use of anticoagulants
CPT/HCPCS: 32555; 36415; 71046; 71275; 74177; 76700; 80048; 80053; 81001; 82550; 82553; 82805; 83735; 83880; 84443; 84484; 85025; 85379; 85610; 85652; 86021; 86140; 86160; 86162; 86225; 87015; 87070; 87116; 87206; 88108; 88305; 89050; 93970; 94640; G0378; G0379; J2920; J7512; Q9967

== ENCOUNTER 2020-03-01 11:12 | Inpatient (IN) | payer OTHER ==
--- OUTSIDE RECORDS SUMMARY | 2020-03-01 11:14 | XMS REPORT | Continuity of Care Document ---
:1940 Author Organization [facility] t Address [address] [place] [id number] Care Team Providers Name Role Phone Unavailable Unavailable Unavailable Payers Payer Name Policy Type Policy Number Effective Date Expiration Date S ource Problems This patient has no known problems. Allergies, Adverse Reactions, Alerts Allergy Allergy Status Severity Reaction(s) Onset Inactive Treating Comm ents Source Name Type Date Date Clinician tioconaz DA Active SV 2018-0 [facility] [place] [facility] Active SV 2018-0 [facility] [place] [facility] tioconaz DA Active SV 2017-0 [facility] [place] [facility] Medications This patient has no known medications. Procedures This patient has no known procedures. Results This patient has no known results.
[2020-03-01 12:13] VITALS: BMI 21.2
[2020-03-01] MEDS ORDERED: INFLUENZA VACCINE (for 3y+) 0.5 ML DOSE IMVAC ONE (13:00)
[2020-03-01] MEDS ORDERED: PNEUMOCOCCAL VACCINE 0.5 ML IMVAC ONE (13:00)
[2020-03-01] MEDS ORDERED: HYDROMORPHONE HCL 1 MG/ML INJ IV PRN (13:13)
[2020-03-01] MEDS ORDERED: ACETAMINOPHEN 325 MG TABLET PO PRN (14:00)
[2020-03-01] MEDS ORDERED: LOPERAMIDE HCL 2 MG CAPSULE PO PRN (14:00)
[2020-03-01] MEDS ORDERED: NACHLORIDE 0.45% 1,000 ML IV SCH (14:00)
[2020-03-01] MEDS ORDERED: POLYETHYL GLY 3350 17 GM/DOSE PO PRN (14:00)
[2020-03-01] MEDS ORDERED: ONDANSETRON 4 MG (ODT) TAB PO PRN (14:00)
[2020-03-01] MEDS ORDERED: DIPHENHYDRAMINE 25 MG TAB/CAP PO PRN (14:00)
[2020-03-01 14:18] LABS: Protime INR 1.18
[2020-03-01 14:22] LABS: Absolute Lymphocytes (CBC) 1.3 K/uL (0.7-4.9); Hematocrit 29.6 % (36.0-45.0); Lymphocytes % 9.6 % (15.3-44.8); MPV 8.4 fL (7.6-11.3); RBC Red Blood Cell Count 3.18 M/uL (3.86-4.86)
--- NOTE | 2020-03-01 14:27 | RAD REPORT ---
EXAM DESCRIPTION: RAD - Chest Single View - 03/01/2020 2:01 pm CLINICAL HISTORY: pre-op, left hip fracture COMPARISON: Two view chest October 2018, CT abdomen and pelvis July 2018 TECHNIQUE: AP portable chest image was obtained 03/01/2020 2:01 pmin supine positioning . FINDINGS: No peripheral mass or consolidation of either lung field confirmed. Right base assessment is limited. Right hemidiaphragm elevation is present. Heart size is normal. Right heart border is par tially obscured. No pneumothorax is seen. Patient has large bilateral pleural effusions with the righ t appearing larger than comparison study. The apparent layering of fluid on supine examination causes increased density over the lung clarke. No acute bony abnormality seen. No acute aortic findings usha pected. IMPRESSION: Large bilateral pleural effusions are present. Right-sided pleural effusion have increas ed slightly. The patient supine positioning makes it difficult to compare volumes to prior imaging.
--- NOTE | 2020-03-01 14:27 | RAD REPORT ---
EXAM DESCRIPTION: RAD - Hip Left 2 View - 03/01/2020 2:00 pm CLINICAL HISTORY: left hip fracture COMPARISON: No comparisons FINDINGS: AP and cross-table lateral views of the left hip joint were obtained. Subcapital neck fracture is present with partial impaction into the femoral head. No AVN or focal fem oral head abnormality. Pathologic etiology not identifiable. Underlying osteopenic changes are eviden t. No soft tissue abnormality. IMPRESSION: Minimally impacted left femoral neck fracture
[2020-03-01 14:45] LABS: Albumin 2.6 g/dL (3.4-5.0); Bilirubin Direct 0.3 mg/dL (0-0.2); Bilirubin Total 0.8 mg/dL (0.2-1.0); Potassium 3.3 mmol/L (3.5-5.1); Protein, Total 6.3 g/dL (6.4-8.2)
[2020-03-01] MEDS: KCL 20 MEQ/100 mL IVPB 20 MEQ/100 ML BAG IV SCH ×2 (15:56→16:00)
[2020-03-01] MEDS ORDERED: POTASSIUM CL 40 MEQ in NA CHLORIDE 0.9% 500 ML IV SCH (16:00)
[2020-03-01 16:31] LABS: Phosphorus 3.1 mg/dL (2.5-4.9); Thyroid Stimulating Hormone 1.95 uIU/mL (0.360-3.740)
--- NOTE | 2020-03-01 17:21 | P.HP ---
Certification for Inpatient Patient admitted to: Inpatient With expected LOS: >2 Midnights Practitioner: I am a practitioner with admitting privileges, knowledge of patient current condition, hospital course, and medical plan of care. Services: Services provided to patient in accordance with Admission requirements found in Title 42 Section 412.3 of the Code of Federal Regulations Patient History Date of Service: 03/01/20 Reason for admission: FELL AND BROKE L HIP History of Present Illness: WAS A HOSPICE PATIENT UNTIL THIS AM. 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 SHE FELL AND BROKE L HIP. SHE DOES NOT HAVE MUCH PAIN UNTIL SHE MOVES. Allergies tioconazole [From [employer] (tioconazole)] Allergy (Verified 05/02/18 02:22) Hives/Rash Home Medications: Methocarbamol 750 mg PO TIDP PRN 05/02/18 Amitriptyline [Elavil*] 10 mg PO BEDTIME #90 tab 05/10/18 Apixaban [Eliquis] 5 mg PO BID #60 tablet 05/10/18 Gabapentin [Neurontin*] 100 mg PO TID #90 cap 05/10/18 Sotalol HCl [Betapace*] 80 mg PO BID 6AM 6PM #180 tab 05/10/18 Bumetanide 2 mg PO DAILY 07/29/18 Levalbuterol HCl [Xopenex] 0.63 mg IH TID 07/29/18 Bumetanide [Bumex] 2 mg PO BID #60 tab 08/01/18 Ipratropium Neb [Atrovent*] 0.5 mg IH [id number] amp 08/01/18 Levalbuterol [Xopenex*] 1.25 mg IH [id number] vial 08/01/18 Spironolactone 50 mg PO DAILY #90 tablet 08/01/18 Spironolactone [Aldactone*] 25 mg PO BID tab 08/01/18 Ipratropium Neb [Atrovent Neb] 0.5 mg IH Q6H #1 amp 08/02/18 - Past Medical/Surgical History Has patient received pneumonia vaccine in the past: No Diabetic: No -: A.FIB -: HTN -: BACK PAIN -: OSTEOPOROSIS -: DEGENERATIVE DISC DISEASE -: OSTEOARTHRITIS -: OVARIAN CYST REMOVAL -: KNEE SX -: CHOLECYSTECTOMY - Family History Father -: Heart disease, Lung disease Mother -: Stroke - Social History Smoking Status: Never smoker Alcohol use: No CD- Drugs: No Caffeine use: Yes Review of Systems 10-point ROS is otherwise unremarkable General: Weakness, Malaise Respiratory: Shortness of Breath (MILD AT REST.) Physical Examination - Vital Signs Temperature: 98.6 F Blood Pressure: 112/77 Pulse: 96 Respirations: 18 Pulse Ox (%): 91 - Physical Exam General: Oriented x3, Mild distress, Moderate distress HEENT: Atraumatic, PERRLA, Mucous membr. moist/pink, EOMI, Sclerae nonicteric Neck: Supple, 2+ carotid pulse no bruit, No LAD, Without JVD or thyroid abnormality Respiratory: Clear to auscultation bilaterally, Normal air movement Cardiovascular: Regular rate/rhythm, Normal S1 S2 Gastrointestinal: Normal bowel sounds, No tenderness Musculoskeletal: No tenderness Integumentary: No rashes Neurological: Normal gait, Normal speech, Normal strength at 5/5 x4 extr, Normal tone, Normal affect Lymphatics: No axilla or inguinal lymphadenopathy - Studies Laboratory Data (last 24 hrs) 03/01/20 13:50: Phosphorus 3.1, Magnesium 2.0 03/01/20 13:50: Sodium 136, Potassium 3.3 L, BUN 20 H, Creatinine 0.86, Glucose 94, Total Bilirubin 0.8, AST 16, ALT 9 L, Alkaline Phosphatase 91 03/01/20 13:50: PT 13.9 H, INR 1.18, APTT 25.9 03/01/20 13:50: WBC 13.2 H, Hgb 9.9 L, Hct 29.6 L, Plt Count 364 Microbiology Data (last 24 hrs): 03/01/20 12:40 Nasopharnyx Coronavirus COVID-19 PCR - Final Assessment and Plan - Problems (Diagnosis) (1) Fracture of hip, left, closed Current Visit: Yes Status: Acute Plan: SHE IS HIGH RISK FOR SURGERY. NOT ANYTHING WE CAN DO TO REDUCE THE RISK. I TALKED TO DR. SNYDER AND ALSO FAMILY. HE WILL HAVE TO CALL DAUGHTER TO GIVE MORE DETAILS. ANY LIMITED SURGERY TO BE ABLE TO WEIGHT BEAR WILL BE NEEDED. WILL HOLD ELIQUIS. Qualifiers: Encounter type: initial encounter Qualified Code(s): S72.002A - Fracture of unspecified part of neck of left femur, initial encounter for closed fracture (2) Carcinoma of ovary, stage 4 Current Visit: Yes Status: Chronic Plan: THIS CANCER WAS DIAGNOSED BY CYTOLOGY OF FLUID WE NEVER HAD OVARIAN MASS TO GO BY. 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 SHE HAS DONE WELL WITH HOSPICE TO BE COMFORTABLE. PROGNOSIS IS OVERALL POOR. Qualifiers: Laterality: unspecified laterality Qualified Code(s): C56.9 - Malignant neoplasm of unspecified ovary - Advance Directives Does patient have a Living Will: No Does patient have a Durable POA for Healthcare: No
[2020-03-01] MEDS: ONDANSETRON 4 MG/2 ML VIAL IV PRN (17:47)
[2020-03-01] MEDS ORDERED: POTASSIUM CL SA 10 MEQ TAB PO ONE (18:00)
--- NOTE | 2020-03-01 20:37 | CON ---
Date of Consultation: 03/01/2020 This is my first time seeing this patient to my knowledge. She is a 79-year-old female, who unfortun ately has ovarian cancer with metastatic spread. She also has pleural effusions, history of atrial f ibrillation, and other medical considerations. Unfortunately, she injured her left lower extremity a nd an x-ray was taken, which demonstrated a displaced valgus impacted femoral neck fracture with some displacement. On physical examination, her other long bones and joints did not show any pain or cre pitation. She does have pain with movement or manipulation of the left hip. Her family is present a nd the patient appears to understand things quite well and we discussed the hip fracture as well as p ossible methods of treating this including nonoperative management, reduction and screw fixation, and bipolar hemiarthroplasty. After discussing risks, benefits, alternatives, family decided that they will speak with Dr. Ernandez, who is their primary care physician as well as amongst the family to deter mine what they will do. If they do decide on operative intervention, Anesthesia also will probably h ave significant input as the medical considerations are a primary deciding factor for the family as w ell as anesthesia and the choice of intervention is quite difficult. I have discussed this all with Dr. Ernandez and we will not pursue any operative intervention tomorrow because she is currently on Eliq uis. There is a possibility we may do this on Wednesday, however, we will have to consider the patient' s needs and medical considerations. /ROQUE Voice ID: [id number] Report ID: [id number]
[2020-03-01] MEDS ORDERED: AMITRIPTYLINE 10 MG TAB PO SCH (21:00)
[2020-03-01] MEDS: DULOXETINE 30 MG CAP PO SCH (22:00)
[2020-03-01] MEDS: LORAZEPAM 0.5 MG TABLET PO PRN (22:00)
[2020-03-01 23:16] LABS: Urine Appearance CLOUDY; Urine Blood NEGATIVE (NEG); Urine Color DK YELLOW; Urine Glucose NEGATIVE (NEG); Urine Protein 1+ (NEG); Urine pH 5.5 (5.0-7.0)
[2020-03-02 00:02] LABS: Urine Bilirubin NEGATIVE (NEG); Urine Microscopic Reflex ORDER UMIC
[2020-03-02 00:11] LABS: Urine Bacteria LOADED /HPF (<20); Urine Mucus 2+ /HPF (NONE SEEN); Urine RBC <5 /HPF (NONE SEEN)
[2020-03-02 03:38] LABS: Absolute Lymphocytes (CBC) 1.4 K/uL (0.7-4.9); Basophils % 1.3 % (0-1.3); Hematocrit 28.5 % (36.0-45.0); Lymphocytes % 15.8 % (15.3-44.8); RBC Red Blood Cell Count 3.06 M/uL (3.86-4.86)
[2020-03-02 03:52] LABS: Magnesium 2.1 mg/dL (1.8-2.4); Potassium 3.9 mmol/L (3.5-5.1)
[2020-03-02] MEDS: ONDANSETRON 4 MG/2 ML VIAL IV PRN (06:32)
[2020-03-02] MEDS: LORAZEPAM 0.5 MG TABLET PO PRN (06:34)
[2020-03-02] MEDS ORDERED: LEVALBUTEROL 0.63 MG/3 ML NEB NEB PRN (06:43)
[2020-03-02] MEDS ORDERED: MORPHINE SULFATE PO PRN (06:55)
[2020-03-02] MEDS ORDERED: LORAZEPAM 0.5 MG TABLET PO PRN (06:55)
[2020-03-02] MEDS ORDERED: LEVALBUTEROL 0.63 MG/3 ML NEB ONE (07:09)
[2020-03-02] MEDS ORDERED: POTASSIUM CL SA 10 MEQ TAB PO ONE (09:00)
[2020-03-02] MEDS ORDERED: ENOXAPARIN 40 MG/0.4 ML SQ SCH (09:00)
[2020-03-02] MEDS: BUMETANIDE 1 MG TABLET PO SCH ×2 (10:06→22:21)
[2020-03-02] MEDS: TRAMADOL HCL 50 MG TAB PO SCH ×2 (10:07→22:20)
[2020-03-02] MEDS: ONDANSETRON 4 MG (ODT) TAB PO SCH ×2 (10:09→22:20)
[2020-03-02] MEDS: SOTALOL HCL 80 MG TAB PO SCH (17:40)
--- NOTE | 2020-03-02 20:14 | P.PN ---
Subjective Date of Service: 03/02/20 Chief Complaint: FELL AND BROKE L HIP Subjective: Worsening SAMARA HAS STAGE 4 OVARIAN CANCER WITH METS TO LUNGS. SHE HAD EPISODE OF WHEEZES THIS AM AND NEBULIZER HELPED. I HAD A MEETING WITH DAUGHTER, SON AND WITH TWO PHONES ON AND DAUGHTER AT BEDSIDE TODAY. WE DISCUSSED THE HIGH RISK NATURE OF HIP REPLACEMENT. THEY WANT TO TALK TO ANESHESIOLOGIST. I ADVISED THAT THERE ARE TWO CHOICES. ONE IS TO DO SURGERY AND TAKE RISK OF ANETHESIA. SHE HAS BILATERAL LARGE PLEURAL EFFUSIONS, THESE ARE MALIGNANT EFFUSIONS AND WILL FILL UP AGAIN SOON IF WE REMOVE. REMOVING THE EFFUSION MAY NOT CHANGE THE OUTCOME OF SURGERY. OTHER OPTION IS TO LEAVE ALONE WITHOUT SURGERY, NOT AMBULATE ANY LONGER AND BE BED BOUND. SHE DOES NOT HAVE MUCH TO LIVE. SHE IS ALREADY FALLING AT HOME BEFORE THIS FRACTURE HAPPENED AND SO I SEE THE REHAB POTENTIAL TO BE POOR AFTER SURGERY. WITH LIMITED LIFESPAN I SUSPECT THE SURGERY IS NOT IN HER BEST INTEREST. FINAL DECISION IS HERS. Review of Systems 10-point ROS is otherwise unremarkable General: Weakness, Malaise Respiratory: Shortness of Breath Physical Examination - Vital Signs Temperature: 98.6 F Blood Pressure: 122/72 Pulse: 95 Respirations: 18 Pulse Ox (%): 95 - Physical Exam General: Oriented x3, Mild distress, Moderate distress HEENT: Atraumatic, PERRLA, EOMI Neck: Supple, JVD not distended Respiratory: Diminished Cardiovascular: Regular rate/rhythm, Normal S1 S2 Gastrointestinal: Normal bowel sounds, No tenderness Musculoskeletal: No tenderness Integumentary: No rashes Neurological: Normal speech, Normal tone, Normal affect Lymphatics: No axilla or inguinal lymphadenopathy - Studies Laboratory Data (last 24 hrs) 03/02/20 03:26: Sodium 135 L, Potassium 3.9, BUN 20 H, Creatinine 0.80, Glucose 79, Magnesium 2.1 03/02/20 03:26: WBC 9.0 D, Hgb 9.5 L, Hct 28.5 L, Plt Count 329 03/02/20 03:00: Potassium Cancelled Medications List Reviewed: Yes Assessment And Plan - Current Problems (Diagnosis) (1) Fracture of hip, left, closed Current Visit: Yes Status: Acute Plan: SHE IS HIGH RISK FOR SURGERY. NOT ANYTHING WE CAN DO TO REDUCE THE RISK. I TALKED TO DR. CLAUDIO AND ALSO FAMILY. HE WILL HAVE TO CALL DAUGHTER TO GIVE MORE DETAILS. ANY LIMITED SURGERY TO BE ABLE TO WEIGHT BEAR WILL BE NEEDED. WILL HOLD ELIQUIS. PROS AND CONS OF SURGERY IN HPI FAMILY AND PATIENT TO DECIDE NEXT STEP. Qualifiers: Encounter type: initial encounter Qualified Code(s): S72.002A - Fracture of unspecified part of neck of left femur, initial encounter for closed fracture (2) Carcinoma of ovary, stage 4 Current Visit: Yes Status: Chronic Plan: THIS CANCER WAS DIAGNOSED BY CYTOLOGY OF FLUID WE NEVER HAD OVARIAN MASS TO GO BY. 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 SHE HAS DONE WELL WITH HOSPICE TO BE COMFORTABLE. PROGNOSIS IS OVERALL POOR. Qualifiers: Laterality: unspecified laterality Qualified Code(s): C56.9 - Malignant neoplasm of unspecified ovary
[2020-03-02] MEDS ORDERED: DULOXETINE 30 MG CAP PO SCH (21:00)
[2020-03-02] MEDS: DULOXETINE 30 MG CAP PO SCH (22:20)
[2020-03-02] MEDS: AMITRIPTYLINE 10 MG TAB PO SCH (22:20)
[2020-03-02] MEDS: ALBUTEROL 2.5 MG/3 ML NEB SOL NEB PRN (22:45)
[2020-03-03] MEDS: ALBUTEROL 2.5 MG/3 ML NEB SOL NEB PRN ×3 (04:55→21:35)
[2020-03-03] MEDS: SOTALOL HCL 80 MG TAB PO SCH ×2 (05:24→16:57)
[2020-03-03 06:04] LABS: Absolute Lymphocytes (CBC) 1.5 K/uL (0.7-4.9); Basophils % 1.2 % (0-1.3); Hematocrit 29.6 % (36.0-45.0); Lymphocytes % 16.1 % (15.3-44.8); MPV 8.5 fL (7.6-11.3); RBC Red Blood Cell Count 3.18 M/uL (3.86-4.86)
[2020-03-03 06:15] LABS: Magnesium 1.9 mg/dL (1.8-2.4); Potassium 3.4 mmol/L (3.5-5.1)
[2020-03-03] MEDS ORDERED: POTASSIUM CL 40 MEQ in NA CHLORIDE 0.9% 500 ML IV SCH (08:00)
[2020-03-03] MEDS ORDERED: FENTANYL 25 MCG/PATCH TD SCH (09:00)
[2020-03-03] MEDS ORDERED: POTASSIUM CL SA 10 MEQ TAB PO ONE (09:00)
[2020-03-03] MEDS: BUMETANIDE 1 MG TABLET PO SCH ×2 (10:06→21:18)
[2020-03-03] MEDS: ONDANSETRON 4 MG (ODT) TAB PO SCH ×2 (10:06→21:00)
[2020-03-03] MEDS: TRAMADOL HCL 50 MG TAB PO SCH ×2 (10:07→21:17)
[2020-03-03] MEDS: CEFTRIAXONE/SWI 1gm 1 GM/10 ML SYR IVP SCH (10:08)
--- NOTE | 2020-03-03 13:47 | P.PN ---
Subjective Date of Service: 03/03/20 Chief Complaint: FELL AND BROKE L HIP Subjective: No new changes SAMARA HAS STAGE 4 OVARIAN CANCER WITH METS TO LUNGS. SHE HAD EPISODE OF WHEEZES THIS AM AND NEBULIZER HELPED. I HAD A MEETING WITH DAUGHTER, SON AND WITH TWO PHONES ON AND DAUGHTER AT BEDSIDE TODAY. WE DISCUSSED THE HIGH RISK NATURE OF HIP REPLACEMENT. THEY WANT TO TALK TO ANESHESIOLOGIST. I ADVISED THAT THERE ARE TWO CHOICES. ONE IS TO DO SURGERY AND TAKE RISK OF ANETHESIA. S HE HAS BILATERAL LARGE PLEURAL EFFUSIONS, THESE ARE MALIGNANT EFFUSIONS AND WILL FILL UP AGAIN SOON IF WE REMOVE. REMOVING THE EFFUSION MAY NOT CHANGE THE OUTCOME OF SURGERY. OTHER OPTION IS TO LEAVE ALONE WITHOUT SURGERY, NOT AMBULATE ANY LONGER AND BE BED BOUND. SHE DOES NOT HAVE MUCH TO LIVE. SHE IS ALREADY FALLING AT HOME BEFORE THIS FRACTURE HAPPENED AND SO I SEE THE REHAB POTENTIAL TO BE POOR AFTER SURGERY. WITH LIMITED LIFESPAN I SUSPECT THE SURGERY IS NOT IN HER BEST INTEREST. FINAL DECISION IS HERS. I HAD A DISCUSSION WITH ALL FAMILY AND PATIENT TODAY. SHE STARTED TO HAVE REGURG ITATION OF FOOD WHILE WE WERE TALKING. I ADVISED THAT SHE IS NOT IN PAIN AND SHE SHOULD NOT DO SURGERY. HER LIFE IS LIMITED AND EVEN AFTER SURGERY TAKING HIGH RISK SHE WILL NOT MOST LIKELY BE ABLE TO WALK. SHE WILL BACK ON HOSPICE AT HOME FROM TOMORROW. Review of Systems 10-point ROS is otherwise unremarkable General: Weakness, Malaise Physical Examination - Vital Signs Temperature: 98 F Blood Pressure: 131/60 Pulse: 73 Respirations: 18 Pulse Ox (%): 98 - Physical Exam General: Mild distress, Moderate distress HEENT: Atraumatic, PERRLA, EOMI Neck: Supple, JVD not distended Respiratory: Clear to auscultation bilaterally, Normal air movement Cardiovascular: Regular rate/rhythm, Normal S1 S2 Gastrointestinal: Normal bowel sounds, No tenderness Musculoskeletal: No tenderness Integumentary: No rashes Neurological: Normal speech, Normal tone, Normal affect Lymphatics: No axilla or inguinal lymphadenopathy - Studies Laboratory Data (last 24 hrs) 03/03/20 05:17: Sodium 132 L, Potassium 3.4 L, BUN 18, Creatinine 0.86, Glucose 89, Magnesium 1.9 03/03/20 05:17: WBC 9.5, Hgb 10.1 L, Hct 29.6 L, Plt Count 384 Microbiology Data (last 24 hrs): 03/01/20 23:00 Catheterized Urine Jonancy Count - Final >100,000 CFU/ML. 03/01/20 23:00 Catheterized Urine - Final Escherichia Coli Medications List Reviewed: Yes Assessment And Plan - Current Problems (Diagnosis) (1) Fracture of hip, left, closed Current Visit: Yes Status: Acute Plan: SHE IS HIGH RISK FOR SURGERY. NOT ANYTHING WE CAN DO TO REDUCE THE RISK. I TALKED TO DR. SNYDER AND ALSO FAMILY. HE WILL HAVE TO CALL DAUGHTER TO GIVE MORE DETAILS. ANY LIMITED SURGERY TO BE ABLE TO WEIGHT BEAR WILL BE NEEDED. WILL HOLD ELIQUIS. PROS AND CONS OF SURGERY IN HPI FAMILY AND PATIENT TO DECIDE NEXT STEP. HPI SHE WILL NOT HAVE SURGRY. SHE IS OKAY WITH THAT. FAMILY IS NOW ABLE TO UNDERSTAND THAT OUR GOAL IS HER COMFORT AND NOT FIGHT THE INEVITABLE. Qualifiers: Encounter type: initial encounter Qualified Code(s): S72.002A - Fracture of unspecified part of neck of left femur, initial encounter for closed fracture (2) Carcinoma of ovary, stage 4 Current Visit: Yes Status: Chronic Plan: THIS CANCER WAS DIAGNOSED BY CYTOLOGY OF FLUID WE NEVER HAD OVARIAN MASS TO GO BY. 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 SHE HAS DONE WELL WITH HOSPICE TO BE COMFORTABLE. PROGNOSIS IS OVERALL POOR. Qualifiers: Laterality: unspecified laterality Qualified Code(s): C56.9 - Malignant neoplasm of unspecified ovary
[2020-03-03] MEDS: methocarbamoL 750 MG TAB PO PRN (16:56)
[2020-03-03] MEDS: AMITRIPTYLINE 10 MG TAB PO SCH (21:16)
[2020-03-03] MEDS: DULOXETINE 30 MG CAP PO SCH (21:18)
[2020-03-04 05:49] LABS: Absolute Lymphocytes (CBC) 1.6 K/uL (0.7-4.9); Basophils % 0.9 % (0-1.3); Hematocrit 28.6 % (36.0-45.0); Lymphocytes % 20.8 % (15.3-44.8); RBC Red Blood Cell Count 3.09 M/uL (3.86-4.86)
[2020-03-04 06:19] LABS: Potassium 3.6 mmol/L (3.5-5.1)
[2020-03-04] MEDS: SOTALOL HCL 80 MG TAB PO SCH (06:37)
[2020-03-04] MEDS: methocarbamoL 750 MG TAB PO PRN (07:13)
[2020-03-04 07:55] VITALS: TEMP 97.3
[2020-03-04] MEDS ORDERED: POTASSIUM CL SA 10 MEQ TAB PO ONE (08:00)
--- NOTE | 2020-03-04 08:04 | P.DS ---
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 SHE FELL AND BROKE L HIP. SHE DOES NOT HAVE MUCH PAIN UNTIL SHE MOVES. Hospital Course: MRS. 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 SHE HAS CHR PLEURAL EFFUSIONS. SHE FELL AND BROKE L HIP. SHE IS NOT A SURGICAL CANDIDATE. SHE DOES NOT HAVE MUCH TO LIVE. THIS IS CONSIDERED DECLINE IN CONDITION. FAMILY AFTER MANY MEETINGS UNDERSTAND THAT SHE IS PAINFREE SHE DOES NOT NEED SURGERY. SHE MAY NOT WALK AFTER SURGERY ANYWAY. SHE ALSO DOES NOT WANT SURGERY. SHE IS DISCHARGED IN BED BOUND CONDITION TO HOME BACK WITH HOSPICE. Vital Signs/Physical Exam: Temp Pulse Resp BP Pulse Ox 97.3 F 78 18 118/58 L 95 03/04/20 04:00 03/04/20 06:38 03/04/20 07:13 03/04/20 06:38 03/04/20 07:13 General: Oriented x3, Cooperative, Mild distress, Other (WEAK AND OFF AND ON HAS RETCHING OR VOMITIN.) HEENT: Atraumatic, PERRLA, EOMI Neck: Supple, JVD not distended Respiratory: Diminished Cardiovascular: Regular rate/rhythm, Normal S1 S2 Gastrointestinal: Normal bowel sounds, No tenderness Musculoskeletal: No tenderness Integumentary: No rashes Neurological: Normal speech, Normal tone, Normal affect Lymphatics: No axilla or inguinal lymphadenopathy Laboratory Data at Discharge: WBC 7.8 K/uL (4.3-10.9) D 03/04/20 04:55 Hgb 9.6 g/dL (12.0-15.0) L 03/04/20 04:55 Hct 28.6 % (36.0-45.0) L 03/04/20 04:55 Plt Count 403 K/uL (152-406) 03/04/20 04:55 PT 13.9 SECONDS (9.5-12.5) H 03/01/20 13:50 INR 1.18 03/01/20 13:50 APTT 25.9 SECONDS (24.3-36.9) 03/01/20 13:50 Sodium 135 mmol/L (136-145) L 03/04/20 04:55 Potassium 3.6 mmol/L (3.5-5.1) 03/04/20 04:55 BUN 17 mg/dL (7-18) 03/04/20 04:55 Creatinine 0.94 mg/dL (0.55-1.3) 03/04/20 04:55 Glucose 81 mg/dL (74-106) 03/04/20 04:55 Phosphorus 3.1 mg/dL (2.5-4.9) 03/01/20 13:50 Magnesium 2.0 mg/dL (1.8-2.4) 03/04/20 04:55 Total Bilirubin 0.8 mg/dL (0.2-1.0) 03/01/20 13:50 AST 16 U/L (15-37) 03/01/20 13:50 ALT 9 U/L (12-78) L 03/01/20 13:50 Alkaline Phosphatase 91 U/L (45-117) 03/01/20 13:50 Home Medications: Methocarbamol 750 mg PO BIDP PRN 05/02/18 Apixaban [Eliquis] 5 mg PO BID #60 tablet 05/10/18 Sotalol HCl [Betapace*] 80 mg PO BID 6AM 6PM #180 tab 05/10/18 Bumetanide [Bumex*] 2 mg PO BID #60 tab 08/01/18 Albuterol Sulfate [Albuterol Sulfate 0.083% Neb Soln] 3 ml IH Q6HR PRN 03/01/20 Amitriptyline HCl 1 tab PO BEDTIME 03/01/20 Duloxetine HCl 1 cap PO BEDTIME 03/01/20 LORazepam [Ativan*] 1 tab PO Q2H PRN 03/01/20 Morphine Sulfate/Pf [Morphine 1 mg/2 ml Syringe] 0.5 mg PO BID PRN 03/01/20 Morphine Sulfate/Pf [Morphine 1 mg/2 ml Syringe] 0.75 ml PO BID PRN 03/01/20 Ondansetron [Zofran (Odt)*] 8 mg PO BID 03/01/20 traMADol HCL [Ultram*] 1 tab PO BID 03/01/20 Followup: Miguelito Ernandez MD [ACTIVE - CAN ADMIT] -
[2020-03-04] MEDS: BUMETANIDE 1 MG TABLET PO SCH (08:06)
[2020-03-04] MEDS: CEFTRIAXONE/SWI 1gm 1 GM/10 ML SYR IVP SCH (08:06)
[2020-03-04] MEDS: ONDANSETRON 4 MG (ODT) TAB PO SCH (08:07)
[2020-03-04] MEDS: TRAMADOL HCL 50 MG TAB PO SCH (08:07)
[2020-03-04 10:08] VITALS: BP 105/55
[2020-03-04 11:15] VITALS: O2SAT 93
== END 2020-03-04 12:10 | disposition hospice, home (50) | DRG 535 ==
LOC: 2ND 11:12
PROVIDERS: ADMIT Internal Medicine; ATTEND Internal Medicine
DX: S72.002A Fracture of unspecified part of neck of left femur, initial encounter for closed fracture (principal); U07.1 COVID-19; C56.9 Malignant neoplasm of unspecified ovary; C48.2 Malignant neoplasm of peritoneum, unspecified; J91.0 Malignant pleural effusion; C78.00 Secondary malignant neoplasm of unspecified lung; I48.91 Unspecified atrial fibrillation; I10 Essential (primary) hypertension; W18.30XA Fall on same level, unspecified, initial encounter; Z88.8 Allergy status to other drugs, medicaments and biological substances; Z79.01 Long term (current) use of anticoagulants; Z79.899 Other long term (current) drug therapy; Z90.49 Acquired absence of other specified parts of digestive tract
CPT/HCPCS: 36415; 71045; 80048; 80076; 81003; 81015; 82306; 82607; 83735; 84100; 84443; 85025; 85610; 85730; 87077; 87086; 87088; 87186; 94640; J0696; J2405; J3480; J7040; U0002